=== PATIENT | male | born 1945 | race Caucasian/White ===

== ENCOUNTER 2017-04-26 10:05 | Day surgery (SDC) | payer MEDICARE ==
[~2017-04-26 10:05] MED LIST: ALPRAZolam 0.25 MG TAB PO ONE
[2017-04-26 10:59] VITALS: RESP 18; TEMP 98
[2017-04-26 11:12] LABS: Mean Platelet Volume 8.2
[2017-04-26 11:35] LABS: INR 1.1 (<1.2); Prothrombin Time 11.5 sec (9.0-12.0)
[2017-04-26 12:39] VITALS: BP 138/74; PULSE 60
--- NOTE | 2017-04-26 12:40 | XR ---
EXAMINATION TYPE: XR chest 1V DATE OF EXAM: 04/26/2017 COMPARISON: Prior chest x-ray 04/23/2017 HISTORY: Status post left thoracentesis TECHNIQUE: Single frontal view of the chest is obtained. FINDINGS: There is no evident pneumothorax. Persistent pleural effusion and associated atelectasis n oted at the left lung base. No other interval change. The patient is rotated. IMPRESSION: No evident complication status post thoracentesis on the left.
--- NOTE | 2017-04-26 14:04 | US ---
EXAMINATION TYPE: US thoracentesis DATE OF EXAM: 04/26/2017 COMPARISON: NONE HISTORY: Pleural effusion. FINDINGS: Maximal barrier technique was utilized. The skin overlying a suitable pocket of fluid was localized and the overlying skin prepped and draped. Lidocaine was used for local anesthesia. Ultras ound was used with sterile technique. A 5 Kyrgyz catheter over guide needle was advanced into the pl eural fluid collection using ultrasound guidance and the catheter advanced, needle removed. Approxim ately 1.4 liter(s) of milky fluid was removed. Catheter was withdrawn and hemostasis achieved. Ther e is no immediate complication. The patient discharged in stable condition without complication. IMPRESSION: STATUS POST ULTRASOUND GUIDED THORACENTESIS, POST PROCEDURE CHEST X-RAY PENDING. THIS UT OCEDURE WAS PERFORMED BY THE UNDERSIGNED. Specimen sent for laboratory analysis.
[2017-04-26 15:28] LABS: RBC, Body Fluid 600 /uL
[2017-04-26 15:39] LABS: Body Fluid Comment Many Mesothelial
[2017-04-26 18:58] LABS: Glucose, BF Source Pleural Fluid; LDH, Body Fluid Source Pleural Fluid; T. Protein, Body Fluid Source Pleural Fluid; Total Protein, Body Fluid 4100 mg/dL
== END 2017-04-26 12:30 | disposition home or self-care (01) ==
LOC: RADPROMAIN 10:05
PROVIDERS: ATTEND Internal Medicine
DX: J90 Pleural effusion, not elsewhere classified (principal)
CPT/HCPCS: 32555; 36415; 71010; 82945; 83615; 84157; 85049; 85610; 87070; 87075; 87102; 87205; 88108; 88305; 89050

== ENCOUNTER → 2017-06-12 | Outpatient (CLI) | payer MEDICARE ==
--- NOTE | 2017-06-12 16:21 | CT ---
"EXAMINATION TYPE: CT abdomen pelvis wo con DATE OF EXAM: 06/12/2017 COMPARISON: 12/31/2012 HISTORY: Patient has no complaints at time of study. Abnormal prior CT of the chest showing enlarged lymph nodes. CT DLP: 493.1 mGycm Examination of the solid and hollow viscera is limited given the lack of contrast. FINDINGS: LUNG BASES: Moderate to large left-sided pleural effusion with associated compressive atelectasis. LIVER/GB: The gallbladder is unremarkable. No space-occupying hepatic lesion. PANCREAS: No pancreatic mass identified. No inflammatory process seen. SPLEEN: No evidence for splenomegaly. No intrasplenic lesions seen. ADRENALS: No adrenal nodules identified. No evidence for thickening. KIDNEYS: There is ill-definition of both kidneys left greater than right. Kidneys are adjacent to mas sive retroperitoneal adenopathy. Infiltration into the kidneys is suspected however given the lack of contrast evaluation is limited. Suspect left-sided hydronephrosis. Tiny nonobstructing calculus righ t kidney. Perinephric stranding seen bilaterally. BOWEL: There may be early invasion into the transverse portion of the duodenum. Contrast however is noted within the distal small and large bowel. Lymph nodes: Massive retroperitoneal adenopathy measures an estimated 9.8 x 8.2 x 19.3 cm. Adenopathy extends into the left iliac chain. Celiac axis adenopathy measures 2.9 cm. Abdominal aorta: Atheromatous changes seen. No evidence for aneurysm. Genital organs: Prostate gland enlargement. Other: Severe multilevel degenerative disc disease. IMPRESSION: 1. MASSIVE RETROPERITONEAL ADENOPATHY ENCASING THE AORTA AND INFERIOR VENA CAVA. IN ADDITION THERE IS ILL-DEFINITION OF THE KIDNEYS LEFT GREATER THAN RIGHT AND I SUSPECT INFILTRATION INTO THE KIDNEYS. T HERE IS PERINEPHRIC STRANDING AND SUSPECTED LEFT-SIDED HYDRONEPHROSIS. LACK OF INTRAVENOUS CONTRAST L IMITS EVALUATION OF THE KIDNEYS. EARLY INVASION INTO THE TRANSVERSE DUODENUM IS ALSO DIFFICULT TO EXC LUDE. 2. MODERATE TO LARGE LEFT-SIDED PLEURAL EFFUSION LEFT BASILAR COMPRESSIVE ATELECTASIS. A Dare message has been communicated to Becca Fregoso MD via the [employer] | Critical Result sy stem on 06/12/2017 4:18 PM, Message ID [id number]."
== END | disposition home or self-care (01) ==
LOC: RADCTMAIN 13:23
PROVIDERS: ATTEND Internal Medicine
DX: R59.0 Localized enlarged lymph nodes (principal); R93.422 Abnormal radiologic findings on diagnostic imaging of left kidney; R93.421 Abnormal radiologic findings on diagnostic imaging of right kidney
CPT/HCPCS: 36415; 74176; 82565; 84520

== ENCOUNTER 2017-06-19 12:28 | Inpatient (IN) | payer MEDICARE ==
--- NOTE | 2017-06-19 13:29 | ED ---
General Adult HPI - General Source: patient, RN notes reviewed Mode of arrival: ambulatory Limitations: no limitations <Iesha Costa - Last Filed: 06/19/17 14:45> <Brandyn Arndt - Last Filed: 06/19/17 14:49> - General Chief complaint: Recheck/Abnormal Lab/Rx Stated complaint: Recheck-sent by dr Time Seen by Provider: 06/19/17 12:43 - History of Present Illness Initial comments: 72 yo male presents to the ER with cc of sent here by his doctor. Patient had an abnormal CAT scan and they referred him.. At this time the patient has no complaints.Patient denies any recent fever, chills, shortness of breath, chest pain, back pain, abdominal pain, nausea vomiting, numbness or tingling, dysuria or hematuria, constipation or diarrhea, headaches or visual changes, or any other current symptoms. (Iesha Costa) - Related Data Home Medications Medication Instructions Recorded Confirmed Albuterol Inhaler [Ventolin Hfa 1 - 2 puff INHALATION Q6HR PRN 04/24/17 06/19/17 Inhaler] Fluticasone/Salmeterol [Advair 1 inhalation PO RT-BID 04/24/17 06/19/17 500-50 Diskus] Simvastatin 40 mg PO HS 04/24/17 06/19/17 Allergies Allergy/AdvReac Type Severity Reaction Status Date / Time No Known Allergies Allergy Verified 06/19/17 14:36 Review of Systems ROS Other: All systems not noted in ROS Statement are negative. <Iesha Costa - Last Filed: 06/19/17 14:45> ROS Other: All systems not noted in ROS Statement are negative. <Brandyn Arndt - Last Filed: 06/19/17 14:49> ROS Statement: Those systems with pertinent positive or pertinent negative responses have been documented in the HPI. Past Medical History Past Medical History: Asthma Additional Past Medical History / Comment(s): umbilical hernia, history of frequent lung infections History of Any Multi-Drug Resistant Organisms: None Reported Past Surgical History: Hernia Repair Past Anesthesia/Blood Transfusion Reactions: No Reported Reaction Past Psychological History: Anxiety Smoking Status: Never smoker Past Alcohol Use History: Rare Past Drug Use History: None Reported - Past Family History Father Family Medical History: No Reported History <Iesha Costa - Last Filed: 06/19/17 14:45> General Exam Limitations: no limitations General appearance: alert, in no apparent distress Neck exam: Present: normal inspection. Absent: tenderness, meningismus, lymphadenopathy Respiratory exam: Present: normal lung sounds bilaterally. Absent: respiratory distress, wheezes, rales, rhonchi, stridor Cardiovascular Exam: Present: regular rate, normal rhythm, normal heart sounds. Absent: systolic murmur, diastolic murmur, rubs, gallop, clicks GI/Abdominal exam: Present: soft, normal bowel sounds. Absent: distended, tenderness, guarding, rebound, rigid Extremities exam: Present: normal inspection, full ROM, normal capillary refill. Absent: tenderness, pedal edema, joint swelling, calf tenderness Neurological exam: Present: alert, oriented X3 Psychiatric exam: Present: normal affect, normal mood Skin exam: Present: warm, dry, intact, normal color. Absent: rash <Iesha Costa - Last Filed: 06/19/17 14:45> Vital Signs 06/19/17 12:35 Temperature 97.1 F L Pulse Rate 57 L Respiratory 16 Rate Blood Pressure 163/74 O2 Sat by Pulse 99 Oximetry Medical Decision Making - Lab Data Result diagrams: 06/19/17 13:16 06/19/17 13:16 - Radiology Data Radiology results: report reviewed, image reviewed <Iesha Costa - Last Filed: 06/19/17 14:45> - Lab Data Result diagrams: 06/19/17 13:16 06/19/17 13:16 <Brandyn Arndt - Last Filed: 06/19/17 14:49> - Medical Decision Making 72-year-old male presents to the emergency department with a chief complaint of abnormal CAT scan that was out patiently. At this time he has no complaints. CAT scan was reviewed that does show extensive adenopathy in the retroperitoneal area. At this time we did review the patient's blood work appear to be stable at this time. There is concern for UTI we will start patient on Cipro. We did contact Dr. Herring like the patient admitted. (Iesha Costa) Patient reevaluated by myself, Dr. Arndt. Patient resting comfortably in bed. Case was discussed with Dr. Fregoso who is concerned regarding patient. He states he has had difficulty obtaining follow-up appointments. He did talk to interventional radiologist was unable to perform biopsy. He states patient does need a surgical biopsy. He does recommend admission with consults for Dr. Ramos, urology, and oncology. Case was also discussed with Dr. Bone, who will admit for Dr. Tao. (Brandyn Arndt) - Lab Data Lab Results 06/19/17 06/19/17 06/19/17 Range/Units 13:16 13:16 13:16 WBC 12.9 H (3.8-10.6) k/uL RBC 4.72 (4.30-5.90) m/uL Hgb 12.9 L (13.0-17.5) gm/dL Hct 42.0 (39.0-53.0) % MCV 89.0 (80.0-100.0) fL MCH 27.3 (25.0-35.0) pg MCHC 30.7 L (31.0-37.0) g/dL RDW 15.3 (11.5-15.5) % Plt Count 391 (150-450) k/uL Neutrophils % 66 % Lymphocytes % 9 % Monocytes % 8 % Eosinophils % 16 % Basophils % 1 % Neutrophils # 8.4 H (1.3-7.7) k/uL Lymphocytes # 1.1 (1.0-4.8) k/uL Monocytes # 1.0 (0-1.0) k/uL Eosinophils # 2.1 H (0-0.7) k/uL Basophils # 0.1 (0-0.2) k/uL PT (9.0-12.0) sec INR (<1.2) APTT (22.0-30.0) sec Sodium 142 (137-145) mmol/L Potassium 4.5 (3.5-5.1) mmol/L Chloride 106 (98-107) mmol/L Carbon Dioxide 25 (22-30) mmol/L Anion Gap 11 mmol/L BUN 26 H (9-20) mg/dL Creatinine 1.40 H (0.66-1.25) mg/dL Est GFR (MDRD) Af Amer >60 (>60 ml/min/1.73 sqM) Est GFR (MDRD) Non-Af 50 (>60 ml/min/1.73 sqM) Glucose 83 (74-99) mg/dL Calcium 10.0 (8.4-10.2) mg/dL Phosphorus 3.7 (2.5-4.5) mg/dL Magnesium 1.6 (1.6-2.3) mg/dL Total Bilirubin 0.8 (0.2-1.3) mg/dL AST 16 L (17-59) U/L ALT 24 (21-72) U/L Alkaline Phosphatase 107 (38-126) U/L Total Protein 6.2 L (6.3-8.2) g/dL Albumin 3.5 (3.5-5.0) g/dL Urine Color Yellow Urine Appearance Clear (Clear) Urine pH 5.5 (5.0-8.0) Ur Specific [place] 1.019 (1.001-1.035) Urine Protein 1+ H (Negative) Urine Glucose (UA) Negative (Negative) Urine Ketones Negative (Negative) Urine Blood Negative (Negative) Urine Nitrite Negative (Negative) Urine Bilirubin Negative (Negative) Urine Urobilinogen 2.0 (<2.0) mg/dL Ur Leukocyte Esterase Moderate H (Negative) Urine RBC 3 (0-5) /hpf Urine WBC 23 H (0-5) /hpf Urine Bacteria Rare H (None) /hpf Urine Mucus Rare H (None) /hpf 06/19/17 Range/Units 13:16 WBC (3.8-10.6) k/uL RBC (4.30-5.90) m/uL Hgb (13.0-17.5) gm/dL Hct (39.0-53.0) % MCV (80.0-100.0) fL MCH (25.0-35.0) pg MCHC (31.0-37.0) g/dL RDW (11.5-15.5) % Plt Count (150-450) k/uL Neutrophils % % Lymphocytes % % Monocytes % % Eosinophils % % Basophils % % Neutrophils # (1.3-7.7) k/uL Lymphocytes # (1.0-4.8) k/uL Monocytes # (0-1.0) k/uL Eosinophils # (0-0.7) k/uL Basophils # (0-0.2) k/uL PT 12.4 H (9.0-12.0) sec INR 1.3 H (<1.2) APTT 25.9 (22.0-30.0) sec Sodium (137-145) mmol/L Potassium (3.5-5.1) mmol/L Chloride (98-107) mmol/L Carbon Dioxide (22-30) mmol/L Anion Gap mmol/L BUN (9-20) mg/dL Creatinine (0.66-1.25) mg/dL Est GFR (MDRD) Af Amer (>60 ml/min/1.73 sqM) Est GFR (MDRD) Non-Af (>60 ml/min/1.73 sqM) Glucose (74-99) mg/dL Calcium (8.4-10.2) mg/dL Phosphorus (2.5-4.5) mg/dL Magnesium (1.6-2.3) mg/dL Total Bilirubin (0.2-1.3) mg/dL AST (17-59) U/L ALT (21-72) U/L Alkaline Phosphatase (38-126) U/L Total Protein (6.3-8.2) g/dL Albumin (3.5-5.0) g/dL Urine Color Urine Appearance (Clear) Urine pH (5.0-8.0) Ur Specific [place] (1.001-1.035) Urine Protein (Negative) Urine Glucose (UA) (Negative) Urine Ketones (Negative) Urine Blood (Negative) Urine Nitrite (Negative) Urine Bilirubin (Negative) Urine Urobilinogen (<2.0) mg/dL Ur Leukocyte Esterase (Negative) Urine RBC (0-5) /hpf Urine WBC (0-5) /hpf Urine Bacteria (None) /hpf Urine Mucus (None) /hpf Disposition <Iesha Costa - Last Filed: 06/19/17 14:45> <Brandyn Arndt - Last Filed: 06/19/17 14:49> Clinical Impression: Retroperitoneal lymphadenopathy, UTI (urinary tract infection) Disposition: ADMITTED IP TO THIS [facility] Condition: Stable Referrals: Srinivasa Tao MD [Primary Care Provider] - 1-2 days
[2017-06-19 13:37] LABS: ALT 24 U/L (21-72); AST 16 U/L (17-59); Alkaline Phosphatase 107 U/L (38-126); Anion Gap 11 mmol/L; Blood Urea Nitrogen 26 mg/dL (9-20); Carbon Dioxide 25 mmol/L (22-30); Chloride 106 mmol/L (98-107); Glucose 83 mg/dL (74-99); Magnesium 1.6 mg/dL (1.6-2.3); Non-African American GFR(MDRD) 50 (>60 ml/min/1.73 sqM); Phosphorus 3.7 mg/dL (2.5-4.5); Potassium 4.5 mmol/L (3.5-5.1); Sodium 142 mmol/L (137-145); Total Bilirubin 0.8 mg/dL (0.2-1.3); Total Protein 6.2 g/dL (6.3-8.2)
[2017-06-19 13:38] LABS: Appearance,Urine Clear (Clear); Bacteria,Urine Rare /hpf; Bilirubin,Urine Negative (Negative); Glucose,Urine (UA) Negative (Negative); Ketones,Urine Negative (Negative); Leukocyte Esterase,Urine Moderate (Negative); Mucus,Urine Rare /hpf; Nitrite,Urine Negative (Negative); PH, Urine 5.5 (5.0-8.0); Particle Count 2724; Protein,Urine 1+ (Negative); RBC,Urine 3 /hpf (0-5); Specific Gravity,Urine 1.019 (1.001-1.035); UA Billing (MACRO vs. MICRO) MICRO; WBC,Urine 23 /hpf (0-5)
[2017-06-19 13:41] LABS: Basophils # (A) 0.1 k/uL (0-0.2); Basophils % (A) 1 %; CH 28.3; Eosinophils # (A) 2.1 k/uL (0-0.7); Eosinophils % (A) 16 %; HGB 12.9 gm/dL (13.0-17.5); Luc # (Auto) 0.13; Luc % (Auto) 1; Lymphocytes # (A) 1.1 k/uL (1.0-4.8); Lymphocytes % (A) 9 %; MCH 27.3 pg (25.0-35.0); MCHC 30.7 g/dL (31.0-37.0); Mean Platelet Volume 8.8; Monocytes % (A) 8 %; Neutrophils # (A) 8.4 k/uL (1.3-7.7); Neutrophils % (A) 66 %; RBC 4.72 m/uL (4.30-5.90); RDW 15.3 % (11.5-15.5); WBC 12.9 k/uL (3.8-10.6); WBC (Perox) 13.17
[2017-06-19 13:43] LABS: INR 1.3 (<1.2); Partial Thromboplastin Time 25.9 sec (22.0-30.0); Prothrombin Time 12.4 sec (9.0-12.0)
[2017-06-19] MEDS ORDERED: ONDANSETRON 4 MG/2 ML VIAL IVP PRN (14:45)
[2017-06-19] MEDS ORDERED: NALOXONE 0.4 MG/ML 1 ML VIAL IV PRN (14:45)
[2017-06-19] MEDS ORDERED: ALBUTEROL NEBULIZED 2.5 MG/3 ML INHALATION PRN (14:48)
[2017-06-19 16:54] VITALS: BMI 23.6
[2017-06-19] MEDS ORDERED: NAPROXEN 250 MG TAB PO PRN (17:55)
--- NOTE | 2017-06-19 18:29 | P.HPIM ---
History of Present Illness H&P Date: 06/19/17 Chief Complaint: Abnormal CT imaging This is a 72-year-old very pleasant male patient of Dr. Tao with past medical history of asthma, GERD, hyperlipidemia, BPH who presents after being referred by Dr. Lowe for abnormal CT imaging findings. Patient was seen by Dr. Tao one month ago for recurrent lung infections and was sent for a chest x-ray on 04/23 was suggested moderate size left pleural effusion with a distended atelectasis. Patient underwent thoracentesis which could remove 1250 mL fluid which was cloudy in appearance, cytology was negative. CT chest was ordered to follow-up on pleural effusion which suggested moderate size left pleural effusion along with consolidation/atelectasis in the lingula along with retroperitoneal lymphadenopathy concerning for neoplasm. On 06/12/[address] abdomen and pelvis which suggested massive retroperitoneal T t encasing the aorta and inferior manner. Will ill-definition of the kidneys left greater than the right with possible perinephric stranding and suspected left-sided hydronephrosis. Moderate to large sized left-sided pleural effusion was also seen. Patient on evaluation endorses 25 pounds weight loss in the past 6 months with loss of appetite. For concern for neoplasm, interventional radiology was consulted to evaluate lymph node but could not be removed according to the radiology. Surgical removal of lymph node recommended. Due to left-sided hydronephrosis urology was consulted. Dr. oleary consulted for left-sided pleural effusion. Patient kept nothing by mouth for procedure. Patient denies any symptoms of cough or shortness of breath, denies any fever or chills, denies abdominal pain nausea or vomiting. He does endorses hematuria one week ago but denies any recent discomfort or decreased urination. Review of Systems Constitutional: Denies chills, Denies fever, endorses lethargy, endorses poor appetite,endorses weight loss Eyes: denies decreased vision, denies diplopia, denies discharge, denies pain Ears: deny: decreased hearing Ears, nose, mouth and throat: Denies dental pain, Denies headache, Denies nasal discharge, Denies nose pain Cardiovascular: Denies chest pain, Denies decreased exercise tolerance, Denies edema, Denies high blood pressure, Denies irregular heart beat, Denies palpitations, Denies paroxysmal nocturnal dyspnea, Denies rapid heart beat, Denies shortness of breath Respiratory: Endorses congestion, endorses cough, Denies cough with sputum, Denies dyspnea, Denies home oxygen, Denies wheezing Gastrointestinal: Denies abdominal pain, Denies change in bowel habits, Denies coffee ground emesis, Denies early satiety, Denies excessive gas, Denies heartburn, Denies hematemesis, Denies hematochezia, Denies loss of appetite, Denies nausea, Denies vomiting Genitourinary: Denies dysuria, Denies flank pain, Denies kidney stones, Denies menorrhagia, Denies urgency, Denies urinary frequency Musculoskeletal: Denies gait dysfunction, Denies limitation of motion, Denies morning stiffness, Denies muscle cramps Integumentary: Denies rash, Denies wounds, Denies brittle nails, Denies change in hair/nails, Denies darkening of skin Neurological: Denies balance difficulties, Denies change in speech, Denies double vision, Denies gait dysfunction, Denies loss of vision, Denies motor disturbance, Denies numbness, Denies paralysis, Denies paresthesias, Denies seizures Psychiatric: Denies anxiety, Denies depression Endocrine: Denies excessive sweating, Denies excessive thirst, Denies high blood sugars, Denies palpitations Hematologic/Lymphatic: Denies easy bruising, Denies lymphadenopathy Past Medical History Past Medical History: Asthma, GERD/Reflux, Hyperlipidemia, Prostate Disorder Additional Past Medical History / Comment(s): umbilical hernia, history of frequent lung infections History of Any Multi-Drug Resistant Organisms: None Reported Past Surgical History: Hernia Repair Past Anesthesia/Blood Transfusion Reactions: No Reported Reaction Smoking Status: Never smoker - Past Family History Father Family Medical History: Coronary Artery Disease (CAD), Myocardial Infarction ([place] ) Additional Family Medical History / Comment(s): "HARDENING OF THE ARTERIES", AT AGE 60 Mother Additional Family Medical History / Comment(s): HX DIVERTICULITIS -WENT IN FOR SX - FROM POST OP COMPLICATIONS/SEPSIS. Brother(s) Family Medical History: Cancer Medications and Allergies Home Medications Medication Instructions Recorded Confirmed Type Albuterol Inhaler [Ventolin Hfa 1 - 2 puff INHALATION RT-Q6H PRN 04/24/17 History Inhaler] Fluticasone/Salmeterol [Advair 1 inhalation PO RT-BID 04/24/17 06/19/17 History 500-50 Diskus] Simvastatin 40 mg PO HS 04/24/17 06/19/17 History Ferrous Sulfate [Feosol] 325 mg PO DAILY 06/19/17 06/19/17 History Naproxen [Naprosyn] 500 mg PO Q12HR PRN 06/19/17 06/19/17 History Allergies Allergy/AdvReac Type Severity Reaction Status Date / Time No Known Allergies Allergy Verified 06/19/17 14:36 Physical Exam Vitals: Vital Signs Temp Pulse Pulse Pulse Resp BP BP 06/19/17 16:57 56 L 16 06/19/17 16:39 97.6 F 54 L 12 161/69 06/19/17 15:18 98.1 F 56 L 16 153/70 06/19/17 14:58 97.5 F L 65 18 168/72 06/19/17 12:35 97.1 F L 57 L 16 163/74 Pulse Ox 06/19/17 16:57 06/19/17 16:39 98 06/19/17 15:18 96 06/19/17 14:58 96 06/19/17 12:35 99 Intake and Output 06/19/17 06/19/17 06/19/17 06:59 14:59 22:59 Other: Voiding Method Toilet Weight 72.575 kg 72.575 kg Patient Weight 06/20/17 06:59 Weight 72.575 kg - Constitutional General appearance: average body habitus, no acute distress - EENT Eyes: EOMI, PERRLA ENT: normal oropharynx - Neck Carotids: bilateral: upstroke normal - Respiratory Respiratory: left: dullness, rhonchi, bilateral: diminished, negative: wheezing - Cardiovascular Rhythm: regular Heart sounds: normal: S1, S2 Abnormal Heart Sounds: no systolic murmur, no diastolic murmur ankle Peripheral Edema: bilateral: None - Gastrointestinal General gastrointestinal: no distended, soft, no tenderness - Integumentary Integumentary: no cyanotic, no rash - Neurologic Neurologic: CNII-XII intact - Musculoskeletal Musculoskeletal: gait normal, strength equal bilaterally - Psychiatric Psychiatric: A&O x's 3, appropriate affect Results CBC & Chem 7: 06/19/17 13:16 06/19/17 13:16 Labs: Abnormal Lab Results - Last 24 Hours (Table) 06/19/17 06/19/17 06/19/17 Range/Units 13:16 13:16 13:16 WBC 12.9 H (3.8-10.6) k/uL Hgb 12.9 L (13.0-17.5) gm/dL MCHC 30.7 L (31.0-37.0) g/dL Neutrophils # 8.4 H (1.3-7.7) k/uL Eosinophils # 2.1 H (0-0.7) k/uL PT (9.0-12.0) sec INR (<1.2) BUN 26 H (9-20) mg/dL Creatinine 1.40 H (0.66-1.25) mg/dL AST 16 L (17-59) U/L Total Protein 6.2 L (6.3-8.2) g/dL Urine Protein 1+ H (Negative) Ur Leukocyte Esterase Moderate H (Negative) Urine WBC 23 H (0-5) /hpf Urine Bacteria Rare H (None) /hpf Urine Mucus Rare H (None) /hpf 06/19/17 Range/Units 13:16 WBC (3.8-10.6) k/uL Hgb (13.0-17.5) gm/dL MCHC (31.0-37.0) g/dL Neutrophils # (1.3-7.7) k/uL Eosinophils # (0-0.7) k/uL PT 12.4 H (9.0-12.0) sec INR 1.3 H (<1.2) BUN (9-20) mg/dL Creatinine (0.66-1.25) mg/dL AST (17-59) U/L Total Protein (6.3-8.2) g/dL Urine Protein (Negative) Ur Leukocyte Esterase (Negative) Urine WBC (0-5) /hpf Urine Bacteria (None) /hpf Urine Mucus (None) /hpf Thrombosis Risk Factor Assmnt - DVT/VTE Prophylaxis DVT/VTE Prophylaxis: Pharmacologic Prophylaxis ordered Assessment and Plan Plan: 1 left-sided pleural effusion with cough and congestion- previous fluid analysis from 04/26 has normal glucose, high protein, total WBC 1400, mostly lymphocytic, many mesothelial cells was seen, pH of pleural fluid analysis was not done , unlikely to be exudative , though lymphoma could not be excluded due to increase in lymphocytes moderate right-sided pleural effusion seen on the repeat CT chest. Patient does have significant congestion and rhonchi on the left side with diminished air bases, we will repeat chest x-ray to evaluate for worsening of pleural effusion and any consolidation. IR will be consulted for pleural fluid removal if indicated, patient currently asymptomatic . Dr. Byrd consulted 2 urinary tract infection - continue Rocephin 3 acute kidney injury - Baseline creatinine unknown , repeat BMP tomorrow . Based on the labs done last week patient's creatinine has improved. 4 Retroperitoneal lymphadenopathy -CT abdomen positive for massive retroperitoneal lymphadenopathy 9.8 into 8.2 into 19.3 cm concerning for malignancy along with celiac axis adenopathy. Surgery consulted for possible surgical removal of lymph nodes patient kept nothing by mouth over midnight 5 left hydronephrosis patient able to urinate without any abnormality. Urology consulted for recommendation, 6 DVT prophylaxis with SCDs 7 GI prophylaxis Pepcid 20 mg po twice a day 8 asthma - continue Symbicort inhaler and albuterol #9 hyperlipidemia continue simvastatin CODE STATUS full code Patient would need 2 inpatient nights
--- NOTE | 2017-06-19 19:26 | XR ---
EXAMINATION TYPE: XR chest 2V DATE OF EXAM: 06/19/2017 COMPARISON: Most recent chest x-ray May 09, 2017 HISTORY: Pleural effusion progress study. TECHNIQUE: Frontal and lateral views of the chest are obtained. FINDINGS: There is now moderate left-sided pleural effusion increased in prominence from most recent x-ray. There is associated left basilar compressive atelectasis. Right lung remains clear. The cardi ac silhouette size is stable and upper limits of normal. The osseous structures are intact. IMPRESSION: Moderate-sized left pleural effusion increased in size from most recent x-ray.
--- NOTE | 2017-06-19 20:27 | P.GSCN ---
History of Present Illness Consult date: 06/19/17 Reason for Consult: Retroperitoneal lymphadenopathy History of present illness: Patient was admitted to the hospital for further evaluation of retroperitoneal lymphadenopathy. He has had both a CAT scan of the abdomen and pelvis and the chest. Apparently there was an aborted attempt at percutaneous biopsy of the adenopathy. Consideration for surgical biopsy was made. We were consulted for this reason. Patient denies abdominal pain. He has lost 25 pounds in the last 6 months. His appetite is significantly diminished. No nausea or vomiting. It appears that oncology has not evaluated this patient thus far. Review of Systems The patient denies any acute changes in vision or hearing, no dysphagia or odynophagia, no chest pain, no dysuria or hematuria, no headache, no runny nose , no rectal bleeding or melena Past Medical History Past Medical History: Asthma, GERD/Reflux, Hyperlipidemia, Prostate Disorder Additional Past Medical History / Comment(s): umbilical hernia, history of frequent lung infections History of Any Multi-Drug Resistant Organisms: None Reported Past Surgical History: Hernia Repair Past Anesthesia/Blood Transfusion Reactions: No Reported Reaction Smoking Status: Never smoker - Past Family History Father Family Medical History: Coronary Artery Disease (CAD), Myocardial Infarction ([place] ) Additional Family Medical History / Comment(s): "HARDENING OF THE ARTERIES", AT AGE 60 Mother Additional Family Medical History / Comment(s): HX DIVERTICULITIS -WENT IN FOR SX - FROM POST OP COMPLICATIONS/SEPSIS. Brother(s) Family Medical History: Cancer Medications and Allergies Home Medications Medication Instructions Recorded Confirmed Type Albuterol Inhaler [Ventolin Hfa 1 - 2 puff INHALATION RT-Q6H PRN 04/24/17 History Inhaler] Fluticasone/Salmeterol [Advair 1 inhalation PO RT-BID 04/24/17 06/19/17 History 500-50 Diskus] Simvastatin 40 mg PO HS 04/24/17 06/19/17 History Ferrous Sulfate [Feosol] 325 mg PO DAILY 06/19/17 06/19/17 History Naproxen [Naprosyn] 500 mg PO Q12HR PRN 06/19/17 06/19/17 History Allergies Allergy/AdvReac Type Severity Reaction Status Date / Time No Known Allergies Allergy Verified 06/19/17 14:36 Surgical - Exam Vital Signs Temp Pulse Resp BP Pulse Ox 97.1 F L 57 L 16 163/74 99 06/19/17 12:35 06/19/17 12:35 06/19/17 12:35 06/19/17 12:35 06/19/17 12:35 Physical exam: General: Well-developed, well-nourished HEENT: Normocephalic, sclerae nonicteric Abdomen: Nontender, nondistended Extremities: No edema, no axillary or inguinal adenopathy palpated Neuro: Alert and oriented Results - Labs 06/19/17 13:16 06/19/17 13:16 Abnormal Lab Results - Last 24 Hours (Table) 06/19/17 06/19/17 06/19/17 Range/Units 13:16 13:16 13:16 WBC 12.9 H (3.8-10.6) k/uL Hgb 12.9 L (13.0-17.5) gm/dL MCHC 30.7 L (31.0-37.0) g/dL Neutrophils # 8.4 H (1.3-7.7) k/uL Eosinophils # 2.1 H (0-0.7) k/uL PT (9.0-12.0) sec INR (<1.2) BUN 26 H (9-20) mg/dL Creatinine 1.40 H (0.66-1.25) mg/dL AST 16 L (17-59) U/L Total Protein 6.2 L (6.3-8.2) g/dL Urine Protein 1+ H (Negative) Ur Leukocyte Esterase Moderate H (Negative) Urine WBC 23 H (0-5) /hpf Urine Bacteria Rare H (None) /hpf Urine Mucus Rare H (None) /hpf 06/19/17 Range/Units 13:16 WBC (3.8-10.6) k/uL Hgb (13.0-17.5) gm/dL MCHC (31.0-37.0) g/dL Neutrophils # (1.3-7.7) k/uL Eosinophils # (0-0.7) k/uL PT 12.4 H (9.0-12.0) sec INR 1.3 H (<1.2) BUN (9-20) mg/dL Creatinine (0.66-1.25) mg/dL AST (17-59) U/L Total Protein (6.3-8.2) g/dL Urine Protein (Negative) Ur Leukocyte Esterase (Negative) Urine WBC (0-5) /hpf Urine Bacteria (None) /hpf Urine Mucus (None) /hpf Microbiology - Last 24 Hours (Table) 06/19/17 13:16 Urine Culture - Preliminary Urine,Clean Catch Diabetes panel 06/19/17 Range/Units 13:16 Sodium 142 (137-145) mmol/L Potassium 4.5 (3.5-5.1) mmol/L Chloride 106 (98-107) mmol/L Carbon Dioxide 25 (22-30) mmol/L BUN 26 H (9-20) mg/dL Creatinine 1.40 H (0.66-1.25) mg/dL Glucose 83 (74-99) mg/dL Calcium 10.0 (8.4-10.2) mg/dL AST 16 L (17-59) U/L ALT 24 (21-72) U/L Alkaline Phosphatase 107 (38-126) U/L Total Protein 6.2 L (6.3-8.2) g/dL Albumin 3.5 (3.5-5.0) g/dL Calcium panel 06/19/17 Range/Units 13:16 Calcium 10.0 (8.4-10.2) mg/dL Phosphorus 3.7 (2.5-4.5) mg/dL Albumin 3.5 (3.5-5.0) g/dL Pituitary panel 06/19/17 Range/Units 13:16 Sodium 142 (137-145) mmol/L Potassium 4.5 (3.5-5.1) mmol/L Chloride 106 (98-107) mmol/L Carbon Dioxide 25 (22-30) mmol/L BUN 26 H (9-20) mg/dL Creatinine 1.40 H (0.66-1.25) mg/dL Glucose 83 (74-99) mg/dL Calcium 10.0 (8.4-10.2) mg/dL Adrenal panel 06/19/17 Range/Units 13:16 Sodium 142 (137-145) mmol/L Potassium 4.5 (3.5-5.1) mmol/L Chloride 106 (98-107) mmol/L Carbon Dioxide 25 (22-30) mmol/L BUN 26 H (9-20) mg/dL Creatinine 1.40 H (0.66-1.25) mg/dL Glucose 83 (74-99) mg/dL Calcium 10.0 (8.4-10.2) mg/dL Total Bilirubin 0.8 (0.2-1.3) mg/dL AST 16 L (17-59) U/L ALT 24 (21-72) U/L Alkaline Phosphatase 107 (38-126) U/L Total Protein 6.2 L (6.3-8.2) g/dL Albumin 3.5 (3.5-5.0) g/dL Assessment and Plan (1) Retroperitoneal lymphadenopathy Narrative/Plan: Surgical biopsy either open or laparoscopic would be quite challenging in this case. Would defer to vascular surgery if that was our only option. In cases such as this we have had success with tertiary care referral for either endoscopic ultrasound guided biopsy or percutaneous radiology guided biopsy. This was discussed with the family today. Current Visit: Yes Status: Acute Code(s): R59.0 - LOCALIZED ENLARGED LYMPH NODES SNOMED Code(s): 672477197
[2017-06-19] MEDS: SYMBICORT 160-4.5 MCG INHALER INHALATION SCH (20:42)
[2017-06-19] MEDS ORDERED: ATORVASTATIN 20 MG TAB PO SCH (21:00)
[2017-06-19] MEDS: FAMOTIDINE 20 MG TAB PO SCH (21:02)
[2017-06-19] MEDS: cefTRIAXone IN SWFI 1,000 MG/10 ML SYRINGE IVP SCH (21:03)
[2017-06-20 07:30] LABS: Basophils # (A) 0.1 k/uL (0-0.2); Basophils % (A) 1 %; CH 27.7; CHCM 31.7; Eosinophils # (A) 1.7 k/uL (0-0.7); Eosinophils % (A) 16 %; HCT 34.5 % (39.0-53.0); HDW 2.53; HGB 11.5 gm/dL (13.0-17.5); Luc # (Auto) 0.11; Luc % (Auto) 1; Lymphocytes # (A) 0.9 k/uL (1.0-4.8); Lymphocytes % (A) 9 %; MCH 29.3 pg (25.0-35.0); MCHC 33.3 g/dL (31.0-37.0); MCV 87.9 fL (80.0-100.0); Mean Platelet Volume 8.5; Monocytes % (A) 10 %; Neutrophils # (A) 6.7 k/uL (1.3-7.7); Neutrophils % (A) 64 %; RBC 3.93 m/uL (4.30-5.90); RDW 14.8 % (11.5-15.5); WBC 10.4 k/uL (3.8-10.6); WBC (Perox) 11.18
[2017-06-20] MEDS: FAMOTIDINE 20 MG TAB PO SCH (07:47)
[2017-06-20] MEDS: cefTRIAXone IN SWFI 1,000 MG/10 ML SYRINGE IVP SCH (07:48)
[2017-06-20 07:52] LABS: Calcium 9.8 mg/dL (8.4-10.2); Potassium 4.7 mmol/L (3.5-5.1); Total Bilirubin 0.5 mg/dL (0.2-1.3); Total Protein 5.2 g/dL (6.3-8.2)
[2017-06-20] MEDS: SYMBICORT 160-4.5 MCG INHALER INHALATION SCH (07:58)
[2017-06-20] MEDS ORDERED: FERROUS SULFATE 325 MG TAB PO SCH (09:00)
--- NOTE | 2017-06-20 10:34 | P.PN ---
Subjective Progress Note Date: 06/20/17 Principal diagnosis: Retroperitoneal adenopathy Patient without new complaints. He was seen by oncology earlier today. He was told that arrangements would be made for him to have a percutaneous biopsy at [facility] post discharge. Objective - Vital Signs Vital signs: Vital Signs Temp 97.9 F 06/20/17 07:00 Pulse 96 06/20/17 07:00 Resp 20 06/20/17 07:00 BP 161/72 06/20/17 07:00 Pulse Ox 96 06/19/17 22:02 Intake & Output 06/19/17 06/20/17 06/20/17 18:59 06:59 18:59 Intake Total 400 Balance 400 Weight 72.575 kg Intake: Oral 400 Other: Voiding Method Toilet Toilet # Voids 2 - Exam Abdomen: Soft, nontender, nondistended - Labs CBC & Chem 7: 06/20/17 06:47 06/20/17 06:47 Labs: Abnormal Lab Results - Last 24 Hours (Table) 06/19/17 06/19/17 06/19/17 Range/Units 13:16 13:16 13:16 WBC 12.9 H (3.8-10.6) k/uL RBC (4.30-5.90) m/uL Hgb 12.9 L (13.0-17.5) gm/dL Hct (39.0-53.0) % MCHC 30.7 L (31.0-37.0) g/dL Neutrophils # 8.4 H (1.3-7.7) k/uL Lymphocytes # (1.0-4.8) k/uL Eosinophils # 2.1 H (0-0.7) k/uL PT (9.0-12.0) sec INR (<1.2) BUN 26 H (9-20) mg/dL Creatinine 1.40 H (0.66-1.25) mg/dL AST 16 L (17-59) U/L Total Protein 6.2 L (6.3-8.2) g/dL Albumin (3.5-5.0) g/dL Urine Protein 1+ H (Negative) Ur Leukocyte Esterase Moderate H (Negative) Urine WBC 23 H (0-5) /hpf Urine Bacteria Rare H (None) /hpf Urine Mucus Rare H (None) /hpf Ur Random Sodium (30-90) mmol/L 06/19/17 06/19/17 06/20/17 Range/Units 13:16 22:05 06:47 WBC (3.8-10.6) k/uL RBC 3.93 L (4.30-5.90) m/uL Hgb 11.5 L (13.0-17.5) gm/dL Hct 34.5 L (39.0-53.0) % MCHC (31.0-37.0) g/dL Neutrophils # (1.3-7.7) k/uL Lymphocytes # 0.9 L (1.0-4.8) k/uL Eosinophils # 1.7 H (0-0.7) k/uL PT 12.4 H (9.0-12.0) sec INR 1.3 H (<1.2) BUN (9-20) mg/dL Creatinine (0.66-1.25) mg/dL AST (17-59) U/L Total Protein (6.3-8.2) g/dL Albumin (3.5-5.0) g/dL Urine Protein (Negative) Ur Leukocyte Esterase (Negative) Urine WBC (0-5) /hpf Urine Bacteria (None) /hpf Urine Mucus (None) /hpf Ur Random Sodium 166 H (30-90) mmol/L 06/20/17 Range/Units 06:47 WBC (3.8-10.6) k/uL RBC (4.30-5.90) m/uL Hgb (13.0-17.5) gm/dL Hct (39.0-53.0) % MCHC (31.0-37.0) g/dL Neutrophils # (1.3-7.7) k/uL Lymphocytes # (1.0-4.8) k/uL Eosinophils # (0-0.7) k/uL PT (9.0-12.0) sec INR (<1.2) BUN 28 H (9-20) mg/dL Creatinine 1.60 H (0.66-1.25) mg/dL AST 16 L (17-59) U/L Total Protein 5.2 L (6.3-8.2) g/dL Albumin 2.8 L (3.5-5.0) g/dL Urine Protein (Negative) Ur Leukocyte Esterase (Negative) Urine WBC (0-5) /hpf Urine Bacteria (None) /hpf Urine Mucus (None) /hpf Ur Random Sodium (30-90) mmol/L Microbiology - Last 24 Hours (Table) 06/19/17 13:16 Urine Culture - Preliminary Urine,Clean Catch Assessment and Plan (1) Retroperitoneal lymphadenopathy Narrative/Plan: Continue diet as tolerated. Stable for discharge from my standpoint. Outpatient percutaneous biopsy to be arranged by oncology. Current Visit: Yes Status: Acute Code(s): R59.0 - LOCALIZED ENLARGED LYMPH NODES SNOMED Code(s): 384653890
--- NOTE | 2017-06-20 12:11 | P.CNPUL ---
History of Present Illness Consult date: 06/20/17 Requesting physician: Donell Bone Reason for consult: abnormal CXR/CT Chief complaint: Shortness of breath History of present illness: This is a very pleasant 72-year-old gentleman who follows with Dr. Snyder as his primary care physician. He has a history of hyperlipidemia gastroesophageal reflux disease chronic bronchial asthma and benign prosthetic hypertrophy. He had developed a left-sided pleural effusion and was referred to Dr. Fregoso for the same. He had undergone a left-sided thoracentesis back in April 2017. The fluid of which was more exudative. No evidence of malignancy. A follow-up CT chest was ordered and there was significant retroperitoneal lymphadenopathy concerning for neoplasm. A computed tomography scan dedicated computed tomography scan of the abdomen was performed and revealed evidence of a massive retroperitoneal adenopathy encasing the aorta and inferior vena cava. He is also ill definition of the left kidney with suspected infiltrate. There is nephric stranding and suspected left-sided hydronephrosis. There is also recurrent moderate to large left pleural effusion. Interventional radiology was consulted for possible fine-needle aspirate of the retroperitoneal adenopathy. They had concerns regarding the location and felt it was unsafe procedure. The patient was subsequently admitted for surgical consultation and possible access to the retro-arterial adenopathy. Surgical services following this was not possible based on the fact that encasing the aorta and inferior vena cava. The thought was possible vascular surgery may be able to perform it. They're recommending transfer to a tertiary care center. The patient was seen and evaluated today by Dr. Brooks who is recommending the patient have a ultrasound-guided repeat thoracentesis and have this fluid sent for flow cytometry. Review of Systems 14 point review of system was conducted. All negative other than as mentioned in the HPI. Past Medical History Past Medical History: Asthma, GERD/Reflux, Hyperlipidemia, Prostate Disorder Additional Past Medical History / Comment(s): umbilical hernia, history of frequent lung infections History of Any Multi-Drug Resistant Organisms: None Reported Past Surgical History: Hernia Repair Past Anesthesia/Blood Transfusion Reactions: No Reported Reaction Smoking Status: Never smoker - Past Family History Father Family Medical History: Coronary Artery Disease (CAD), Myocardial Infarction ([place] ) Additional Family Medical History / Comment(s): "HARDENING OF THE ARTERIES", AT AGE 60 Mother Additional Family Medical History / Comment(s): HX DIVERTICULITIS -WENT IN FOR SX - FROM POST OP COMPLICATIONS/SEPSIS. Brother(s) Family Medical History: Cancer Medications and Allergies Home Medications Medication Instructions Recorded Confirmed Type Albuterol Inhaler [Ventolin Hfa 1 - 2 puff INHALATION RT-Q6H PRN 04/24/17 History Inhaler] Fluticasone/Salmeterol [Advair 1 inhalation PO RT-BID 04/24/17 06/19/17 History 500-50 Diskus] Simvastatin 40 mg PO HS 04/24/17 06/19/17 History Ferrous Sulfate [Feosol] 325 mg PO DAILY 06/19/17 06/19/17 History Naproxen [Naprosyn] 500 mg PO Q12HR PRN 06/19/17 06/19/17 History Allergies Allergy/AdvReac Type Severity Reaction Status Date / Time No Known Allergies Allergy Verified 06/19/17 14:36 Physical Exam Vitals: Vital Signs Temp Pulse Pulse Pulse Resp BP BP 06/20/17 07:00 97.9 F 96 20 161/72 06/20/17 00:26 98.5 F 06/19/17 22:02 99.4 F 66 16 153/77 06/19/17 16:57 56 L 16 06/19/17 16:39 97.6 F 54 L 12 161/69 06/19/17 15:18 98.1 F 56 L 16 153/70 06/19/17 14:58 97.5 F L 65 18 168/72 06/19/17 12:35 97.1 F L 57 L 16 163/74 Pulse Ox 06/20/17 07:00 06/20/17 00:26 06/19/17 22:02 96 06/19/17 16:57 06/19/17 16:39 98 06/19/17 15:18 96 06/19/17 14:58 96 06/19/17 12:35 99 Intake and Output 06/19/17 06/20/17 06/20/17 22:59 06:59 14:59 Intake Total 200 200 Balance 200 200 Intake: Oral 200 200 Other: Voiding Method Toilet # Voids 0 2 Weight 72.575 kg 72.575 kg Patient Weight 06/21/17 06:59 Weight 72.575 kg GENERAL EXAM: Alert, active, comfortable in no apparent distress. HEAD: Normocephalic. EYES: Normal reaction of pupils, equal size. NOSE: Clear with pink turbinates. THROAT: No erythema or exudates. NECK: No masses, no JVD. CHEST: No chest wall deformity. LUNGS: Equal air entry diminished in the left lung base. CVS: S1 and S2 normal with no audible murmur, regular rhythm. ABDOMEN: No hepatosplenomegaly, normal bowel sounds, no guarding or rigidity. SPINE: No scoliosis or deformity SKIN: No rashes CENTRAL NERVOUS SYSTEM: No focal deficits, tone is normal in all 4 extremities. EXTREMITIES: There is no peripheral edema. No clubbing, no cyanosis. Peripheral pulses are intact. Results - Laboratory Findings CBC and BMP: 06/20/17 06:47 06/20/17 06:47 PT/INR, D-dimer PT 12.4 sec (9.0-12.0) H 06/19/17 13:16 INR 1.3 (<1.2) H 06/19/17 13:16 Abnormal lab findings: Abnormal Labs 06/19/17 06/19/17 06/19/17 13:16 13:16 13:16 WBC 12.9 H RBC Hgb 12.9 L Hct MCHC 30.7 L Neutrophils # 8.4 H Lymphocytes # Eosinophils # 2.1 H PT INR BUN 26 H Creatinine 1.40 H AST 16 L Total Protein 6.2 L Albumin Urine Protein 1+ H Ur Leukocyte Esterase Moderate H Urine WBC 23 H Urine Bacteria Rare H Urine Mucus Rare H Ur Random Sodium 06/19/17 06/19/17 06/20/17 13:16 22:05 06:47 WBC RBC 3.93 L Hgb 11.5 L Hct 34.5 L MCHC Neutrophils # Lymphocytes # 0.9 L Eosinophils # 1.7 H PT 12.4 H INR 1.3 H BUN Creatinine AST Total Protein Albumin Urine Protein Ur Leukocyte Esterase Urine WBC Urine Bacteria Urine Mucus Ur Random Sodium 166 H 06/20/17 06:47 WBC RBC Hgb Hct MCHC Neutrophils # Lymphocytes # Eosinophils # PT INR BUN 28 H Creatinine 1.60 H AST 16 L Total Protein 5.2 L Albumin 2.8 L Urine Protein Ur Leukocyte Esterase Urine WBC Urine Bacteria Urine Mucus Ur Random Sodium - Diagnostic Findings Chest x-ray: image reviewed Assessment and Plan Assessment: Impression: #1 Dyspnea secondary to moderate to large recurrent left pleural effusion. #2 Massive retroperitoneal adenopathy encasing the aorta and inferior vena cava. Ill-definition of the left kidney. Early invasion into the transverse duodenum is difficult to exclude. #3 Acute kidney injury. #4 Urinary tract infection. #5 Hyperlipidemia. Plan: The patient was seen and evaluated by Dr. Brooks. He is recommending a repeat ultrasound-guided thoracentesis of the left pleural effusion and have the fluid sent for flow cytometry this time. This may give us an answer in regards to the suspected lymphoma. The patient is stable from the pulmonary standpoint and could possibly be discharged home later today following the procedure and he remains stable. He has been seen by surgical services, oncology and urology. We will continue to follow and make further recommendations based on his clinical status. I, the cosigning physician, have performed a history and physical examination on the patient. Lung sounds are mentioned left posterior base. Maintaining good O2 saturations in the 90s on room air. I have discussed the assessment and plan of care with my nurse practitioner, Mirna Friedman. I attest the above documented note as dictated by her. Time with Patient: Greater than 30
--- NOTE | 2017-06-20 14:04 | P.GSCN ---
History of Present Illness Consult date: 06/20/17 Reason for Consult: Retroperitoneal lymphadenopathy History of present illness: The patient is a 72-year-old gentleman brought into the hospital for further evaluation of retroperitoneal lymphadenopathy. He was seen by Dr. Tao for recurring lung infections. He was identified to have a pleural effusion is as well as large retroperitoneal and periaortic lymphadenopathy. Her asked to see the patient and assess him for urologic causes. The patient was interviewed at the bedside with his family. Had no problems voiding although he did admit to some hematuria week ago. His urinalysis had pyuria without hematuria on admission. At a PSA around 3 month ago. He has had no problems urinating. He has had weight loss. Review of Systems He denies chest pain and shortness of breath nausea vomiting. He has had weight loss. He has no problems voiding. Past Medical History Past Medical History: Asthma, GERD/Reflux, Hyperlipidemia, Prostate Disorder Additional Past Medical History / Comment(s): umbilical hernia, history of frequent lung infections History of Any Multi-Drug Resistant Organisms: None Reported Past Surgical History: Hernia Repair Past Anesthesia/Blood Transfusion Reactions: No Reported Reaction Smoking Status: Never smoker - Past Family History Father Family Medical History: Coronary Artery Disease (CAD), Myocardial Infarction ([place] ) Additional Family Medical History / Comment(s): "HARDENING OF THE ARTERIES", AT AGE 60 Mother Additional Family Medical History / Comment(s): HX DIVERTICULITIS -WENT IN FOR SX - FROM POST OP COMPLICATIONS/SEPSIS. Brother(s) Family Medical History: Cancer Medications and Allergies Home Medications Medication Instructions Recorded Confirmed Type Albuterol Inhaler [Ventolin Hfa 1 - 2 puff INHALATION RT-Q6H PRN 04/24/17 History Inhaler] Fluticasone/Salmeterol [Advair 1 inhalation PO RT-BID 04/24/17 06/19/17 History 500-50 Diskus] Simvastatin 40 mg PO HS 04/24/17 06/19/17 History Ferrous Sulfate [Iron (65 MG 325 mg PO DAILY 06/19/17 06/19/17 History Elemental)] Naproxen [Naprosyn] 500 mg PO Q12HR PRN 06/19/17 06/19/17 History Cephalexin [Keflex] 500 mg PO Q8HR #18 cap 06/20/17 Rx Allergies Allergy/AdvReac Type Severity Reaction Status Date / Time No Known Allergies Allergy Verified 06/19/17 14:36 Surgical - Exam Vital Signs Temp Pulse Resp BP Pulse Ox 97.1 F L 57 L 16 163/74 99 06/19/17 12:35 06/19/17 12:35 06/19/17 12:35 06/19/17 12:35 06/19/17 12:35 - General well developed, well nourished - Eyes PERRL - ENT no hearing loss - Neck trachea midline - Respiratory normal expansion, normal respiratory effort - Cardiovascular Rhythm: regular - Abdomen Abdomen: soft, non tender - Neurologic normal coordination, normal sensation - Musculoskeletal normal posture - Psychiatric oriented to time, oriented to person, oriented to place, speech is normal, memory intact Results Computed tomography scan is reviewed by myself. This is done without contrast. There is a significant amount of retroperitoneal adenopathy in the upper abdomen surrounding the aorta and the vena cava. The left kidney is not well seen. It is surrounded by adenopathy. Right kidney is normal. There appears to be unremarkable as does the prostate. - Labs 06/20/17 06:47 06/20/17 06:47 Abnormal Lab Results - Last 24 Hours (Table) 06/19/17 06/20/17 06/20/17 Range/Units 22:05 06:47 06:47 RBC 3.93 L (4.30-5.90) m/uL Hgb 11.5 L (13.0-17.5) gm/dL Hct 34.5 L (39.0-53.0) % Lymphocytes # 0.9 L (1.0-4.8) k/uL Eosinophils # 1.7 H (0-0.7) k/uL BUN 28 H (9-20) mg/dL Creatinine 1.60 H (0.66-1.25) mg/dL AST 16 L (17-59) U/L Total Protein 5.2 L (6.3-8.2) g/dL Albumin 2.8 L (3.5-5.0) g/dL Ur Random Sodium 166 H (30-90) mmol/L Microbiology - Last 24 Hours (Table) 06/19/17 13:16 Urine Culture - Preliminary Urine,Clean Catch Diabetes panel 06/20/17 Range/Units 06:47 Sodium 139 (137-145) mmol/L Potassium 4.7 (3.5-5.1) mmol/L Chloride 106 (98-107) mmol/L Carbon Dioxide 25 (22-30) mmol/L BUN 28 H (9-20) mg/dL Creatinine 1.60 H (0.66-1.25) mg/dL Glucose 91 (74-99) mg/dL Calcium 9.8 (8.4-10.2) mg/dL AST 16 L (17-59) U/L ALT 23 (21-72) U/L Alkaline Phosphatase 88 (38-126) U/L Total Protein 5.2 L (6.3-8.2) g/dL Albumin 2.8 L (3.5-5.0) g/dL Calcium panel 06/20/17 Range/Units 06:47 Calcium 9.8 (8.4-10.2) mg/dL Albumin 2.8 L (3.5-5.0) g/dL Pituitary panel 06/20/17 Range/Units 06:47 Sodium 139 (137-145) mmol/L Potassium 4.7 (3.5-5.1) mmol/L Chloride 106 (98-107) mmol/L Carbon Dioxide 25 (22-30) mmol/L BUN 28 H (9-20) mg/dL Creatinine 1.60 H (0.66-1.25) mg/dL Glucose 91 (74-99) mg/dL Calcium 9.8 (8.4-10.2) mg/dL Adrenal panel 06/20/17 Range/Units 06:47 Sodium 139 (137-145) mmol/L Potassium 4.7 (3.5-5.1) mmol/L Chloride 106 (98-107) mmol/L Carbon Dioxide 25 (22-30) mmol/L BUN 28 H (9-20) mg/dL Creatinine 1.60 H (0.66-1.25) mg/dL Glucose 91 (74-99) mg/dL Calcium 9.8 (8.4-10.2) mg/dL Total Bilirubin 0.5 (0.2-1.3) mg/dL AST 16 L (17-59) U/L ALT 23 (21-72) U/L Alkaline Phosphatase 88 (38-126) U/L Total Protein 5.2 L (6.3-8.2) g/dL Albumin 2.8 L (3.5-5.0) g/dL Assessment and Plan Assessment: Impression: Retroperitoneal lymphadenopathy recent for malignancy, lymphoma or metastatic disease. Stone history this does not sound prostatic. Because of the hematuria further urologic evaluation would be necessary if the cytology of the pleural effusion was nondiagnostic. I have given them my card. She will contact me if the cytology is nondiagnostic which case cystoscopy possible retrograde pyelograms would be indicated.
--- NOTE | 2017-06-20 14:52 | P.DS ---
Providers Date of admission: 06/19/17 14:49 Expected date of discharge: 06/20/17 Attending physician: Donell Bone MD Consults: 06/19/17 14:46 Consult Physician Routine Consulting Provider: Newton John Consult Reason/Comments: Retroperitoneal lymphadenopathy Do you want consulting provider notified?: Yes Consult Physician Routine Consulting Provider: Rohit Anne Consult Reason/Comments: Retroperitoneal lymphadenopathy Do you want consulting provider notified?: Yes 06/19/17 14:48 Consult Physician Routine Consulting Provider: Becca Fregoso Consult Reason/Comments: Retroperitoneal lymphadenopathy Do you want consulting provider notified?: Yes Consult Physician Routine Consulting Provider: González Valle Consult Reason/Comments: Retroperitoneal lymphadenopathy Do you want consulting provider notified?: Yes Primary care physician: [facility] Course: This is a 72-year-old very pleasant male patient of Dr. Tao with past medical history of asthma, GERD, hyperlipidemia, BPH who presents after being referred by Dr. Lowe for abnormal CT imaging findings. Patient was seen by Dr. Tao one month ago for recurrent lung infections and was sent for a chest x-ray on 04/23 was suggested moderate size left pleural effusion with a distended atelectasis. Patient underwent thoracentesis which could remove 1250 mL fluid which was cloudy in appearance, cytology was negative. CT chest was ordered to follow-up on pleural effusion which suggested moderate size left pleural effusion along with consolidation/atelectasis in the lingula along with retroperitoneal lymphadenopathy concerning for neoplasm. On 06/12/[address] abdomen and pelvis which suggested massive retroperitoneal T t encasing the aorta and inferior manner. Will ill-definition of the kidneys left greater than the right with possible perinephric stranding and suspected left-sided hydronephrosis. Moderate to large sized left-sided pleural effusion was also seen. Patient on evaluation endorses 25 pounds weight loss in the past 6 months with loss of appetite. For concern for neoplasm, interventional radiology was consulted to evaluate lymph node but could not be removed according to the radiology. Surgical removal of lymph node recommended. Due to left-sided hydronephrosis urology was consulted. Dr. oleary consulted for left-sided pleural effusion. Patient kept nothing by mouth for procedure. Patient denies any symptoms of cough or shortness of breath, denies any fever or chills, denies abdominal pain nausea or vomiting. He does endorses hematuria one week ago but denies any recent discomfort or decreased urination. 06/20: Patient has been seen by Dr. Deluca 4 retroperitoneal lymphadenopathy with recommendations for patient to follow-up at [facility] to have biopsy done. He will make arrangements for this. Patient evaluated by Dr. Momin for hematuria and patient may need outpatient cystoscopy if the cytology is nondiagnostic. Dr. John agrees with plan for outpatient percutaneous biopsy. Dr. Brooks and has recommended repeat ultrasound-guided thoracentesis of the left pleural fluid with flow cytometry. Patient was cleared by Dr. Brooks after procedure is completed. Patient denies having any abdominal pain. He has had a bowel movement. He denies shortness of breath. Patient will be discharged today in stable condition Discharge diagnoses: 1 left-sided pleural effusion with cough and congestion 2 urinary tract infection 3 chronic kidney disease stage III, possible acute kidney injury which is improved since June 12 with a creatinine of 1.82 4 Retroperitoneal lymphadenopathy 5 left hydronephrosis patient able to urinate without any abnormality. 6 asthma mild intermittent 7 hyperlipidemia Discharge plan: Return home Impression and plan of care have been directed as dictated by the signing physician. Kailey Trimble nurse practitioner acting as scribe for signing physician. Patient Condition at Discharge: Good Plan - Discharge Summary Discharge Rx Participant: Yes New Discharge Prescriptions: New Cephalexin [Keflex] 500 mg PO Q8HR #18 cap Continue Fluticasone/Salmeterol [Advair 500-50 Diskus] 1 inhalation PO RT-BID Albuterol Inhaler [Ventolin Hfa Inhaler] 1 - 2 puff INHALATION RT-Q6H PRN PRN Reason: Shortness Of Breath Simvastatin 40 mg PO HS Naproxen [Naprosyn] 500 mg PO Q12HR PRN PRN Reason: Pain Ferrous Sulfate [Iron (65 MG Elemental)] 325 mg PO DAILY Discharge Medication List Albuterol Inhaler [Ventolin Hfa Inhaler] 1 - 2 puff INHALATION RT-Q6H PRN [History] Fluticasone/Salmeterol [Advair 500-50 Diskus] 1 inhalation PO RT-BID 04/24/17 [ History] Simvastatin 40 mg PO HS 04/24/17 [History] Ferrous Sulfate [Iron (65 MG Elemental)] 325 mg PO DAILY 06/19/17 [History] Naproxen [Naprosyn] 500 mg PO Q12HR PRN 06/19/17 [History] Cephalexin [Keflex] 500 mg PO Q8HR #18 cap 06/20/17 [Rx] Follow up Appointment(s)/Referral(s): Becca Fregoso MD [STAFF PHYSICIAN] - 06/24/17 2:15 pm Lopez Deluca MD [STAFF PHYSICIAN] - 1 Week (office will call the patient to set up appt;patient needs biopsy at [facility]) Srinivasa Tao MD [Primary Care Provider] - 06/25/17 11:00 am Nash Momin MD [STAFF PHYSICIAN] - 07/02/17 9:20 am Discharge Disposition: HOME SELF-CARE
[2017-06-20 15:34] VITALS: BP 171/79; PULSE 68; RESP 18; TEMP 98
--- NOTE | 2017-06-20 16:04 | US ---
EXAMINATION TYPE: US thoracentesis DATE OF EXAM: 06/20/2017 COMPARISON: NONE HISTORY: Pleural effusion. FINDINGS: Maximal barrier technique was utilized. The skin overlying a suitable pocket of fluid was localized and the overlying skin prepped and draped. Lidocaine was used for local anesthesia. Ultras ound was used with sterile technique. A 5 Occitan catheter over guide needle was advanced into the pl eural fluid collection using ultrasound guidance and the catheter advanced, needle removed. Approxim ately 1.81 liter(s) of milky yellow fluid was removed. Catheter was withdrawn and hemostasis achieve d. There is no immediate complication. The patient discharged in stable condition without complicat ion. IMPRESSION: STATUS POST ULTRASOUND GUIDED THORACENTESIS, POST PROCEDURE CHEST X-RAY PENDING. THIS ND OCEDURE WAS PERFORMED BY THE UNDERSIGNED. Specimen sent for laboratory analysis.
--- NOTE | 2017-06-20 16:12 | XR ---
EXAMINATION TYPE: XR chest 1V DATE OF EXAM: 06/20/2017 COMPARISON: Prior chest x-ray 06/19/2017 HISTORY: Pleural effusion TECHNIQUE: Single frontal view of the chest is obtained. FINDINGS: Increased attenuation persists at the left lung base. No evident pneumothorax. No other si gnificant change. IMPRESSION: No evident complication status post left thoracentesis
--- NOTE | 2017-06-20 17:35 | P.CONS ---
History of Present Illness - Reason for Consult Consult date: 06/20/17 retorperitoneal adenopathy Requesting physician: Iesha Costa - Chief Complaint abnormal CT - History of Present Illness Mr. Carbajal is a very pleasant 72 year old male who had a left pleural effusion and enlarged medistinal lymph nodes, throacentesis was done, fluid was negative for malignancy so CT AP was done to evaluate for a primary source, pt found to have significant retroperitoneal adenopathy, pt was seen by Urology and Surgery and due to the proximity to critical blood vessels no biopsy is planned, recommended teritary care facility. Pt denies fevers, sweats, he has lost about 25 lbs on the last month, denies dysphagia, nausea, vomiting, appetite is fair, no abd pain, bloating, changes in bowel or bladder habits, MS c/o, weakness, numbness or tingling. No personal history of cancer, he has chronic back pain and asthma. He had another throacentesis with 1.8 L of fluid removed. Review of Systems 10 point ROS as stated in HPI Past Medical History Past Medical History: Asthma, GERD/Reflux, Hyperlipidemia, Prostate Disorder Additional Past Medical History / Comment(s): umbilical hernia, history of frequent lung infections History of Any Multi-Drug Resistant Organisms: None Reported Past Surgical History: Hernia Repair Past Anesthesia/Blood Transfusion Reactions: No Reported Reaction Past Psychological History: Unable to Obtain Smoking Status: Never smoker Past Drug Use History: Unable to Obtain - Past Family History Father Family Medical History: Coronary Artery Disease (CAD), Myocardial Infarction (MT ) Additional Family Medical History / Comment(s): "HARDENING OF THE ARTERIES", AT AGE 60 Mother Additional Family Medical History / Comment(s): HX DIVERTICULITIS -WENT IN FOR SX - FROM POST OP COMPLICATIONS/SEPSIS. Brother(s) Family Medical History: Cancer Medications and Allergies Home Medications Medication Instructions Recorded Confirmed Type Albuterol Inhaler [Ventolin Hfa 1 - 2 puff INHALATION RT-Q6H PRN 04/24/17 History Inhaler] Fluticasone/Salmeterol [Advair 1 inhalation PO RT-BID 04/24/17 06/19/17 History 500-50 Diskus] Simvastatin 40 mg PO HS 04/24/17 06/19/17 History Ferrous Sulfate [Iron (65 MG 325 mg PO DAILY 06/19/17 06/19/17 History Elemental)] Naproxen [Naprosyn] 500 mg PO Q12HR PRN 06/19/17 06/19/17 History Cephalexin [Keflex] 500 mg PO Q8HR #18 cap 06/20/17 Rx Allergies Allergy/AdvReac Type Severity Reaction Status Date / Time No Known Allergies Allergy Verified 06/19/17 14:36 Physical Exam Vitals: Vital Signs Temp Pulse Pulse Resp BP BP Pulse Ox 06/20/17 15:33 98.0 F 68 18 171/79 169/81 97 06/20/17 15:27 66 20 145/70 96 06/20/17 15:20 66 20 151/77 96 06/20/17 15:10 70 20 153/75 96 06/20/17 07:00 97.9 F 96 20 161/72 06/20/17 00:26 98.5 F 06/19/17 22:02 99.4 F 66 16 153/77 96 Intake and Output 06/20/17 06/20/17 06/20/17 06:59 14:59 22:59 Intake Total 200 240 Balance 200 240 Intake: Oral 200 240 Other: # Voids 2 3 Weight 72.575 kg Patient Weight 06/21/17 06:59 Weight 72.575 kg - Constitutional General appearance: average body habitus, cooperative, no acute distress - EENT Eyes: anicteric sclerae, EOMI, normal appearance ENT: hearing grossly normal, normal oropharynx - Neck Neck: no lymphadenopathy - Respiratory Respiratory: bilateral: CTA - Cardiovascular Rhythm: regular Heart sounds: normal: S1, S2 leg Peripheral Edema: bilateral: None - Gastrointestinal General gastrointestinal: no absent bowel sounds, no decreased bowel sounds, no distended, no hepatomegaly, no hyperactive bowel sounds, normal bowel sounds, no organomegaly, no rigid, no scaphoid, soft, no splenomegaly, no tenderness, no umbilical hernia, no ventral hernia - Integumentary Integumentary: normal - Neurologic Neurologic: CNII-XII intact - Musculoskeletal Musculoskeletal: strength equal bilaterally - Psychiatric Psychiatric: A&O x's 3, appropriate affect, intact judgment & insight Results CBC & Chem 7: 06/20/17 06:47 06/20/17 06:47 Labs: Abnormal Lab Results - Last 24 Hours (Table) 06/19/17 06/20/17 06/20/17 Range/Units 22:05 06:47 06:47 RBC 3.93 L (4.30-5.90) m/uL Hgb 11.5 L (13.0-17.5) gm/dL Hct 34.5 L (39.0-53.0) % Lymphocytes # 0.9 L (1.0-4.8) k/uL Eosinophils # 1.7 H (0-0.7) k/uL BUN 28 H (9-20) mg/dL Creatinine 1.60 H (0.66-1.25) mg/dL AST 16 L (17-59) U/L Total Protein 5.2 L (6.3-8.2) g/dL Albumin 2.8 L (3.5-5.0) g/dL Ur Random Sodium 166 H (30-90) mmol/L Microbiology - Last 24 Hours (Table) 06/19/17 13:16 Urine Culture - Preliminary Urine,Clean Catch Chest x-ray: report reviewed CT scan - abdomen: report reviewed CT scan - chest: report reviewed CT scan - pelvis: report reviewed Assessment and Plan (1) Retroperitoneal lymphadenopathy Narrative/Plan: Concerning for malignant process. Biopsy necessary so, pt is being referred to [facility]. This will be set up through the office and pt will be contacted with appt date and time as well as a follow up appt with Dr. Deluca for results and POC. Pt verbalized understanding. Pt is ok for discharge once considered stable and cleared by Medicine and Consults. Status: Acute Priority: High Code(s): R59.0 - LOCALIZED ENLARGED LYMPH NODES SNOMED Code(s): 483463404
[2017-06-20 20:45] LABS: RBC, Body Fluid 330 /uL
[2017-06-20 20:49] LABS: Body Fluid Comment Few Mesothelial
[2017-06-21 01:55] LABS: T. Protein, Body Fluid Source Pleural Fluid; Total Protein, Body Fluid 3220 mg/dL
[2017-06-21 02:21] LABS: Glucose, BF Source Pleural Fluid; LDH, Body Fluid Source Pleural Fluid
== END 2017-06-20 16:20 | disposition home or self-care (01) | DRG 187 ==
LOC: EC 12:28 → 5MS5E 14:49 → 5ONC 06-20 12:05
PROVIDERS: ADMIT Internal Medicine; ATTEND Internal Medicine
PROC: 0W9B3ZX Drainage of Left Pleural Cavity, Percutaneous Approach, Diagnostic (ICD-10-PCS; principal; 2017-06-20)
DX: J90 Pleural effusion, not elsewhere classified (principal); N39.0 Urinary tract infection, site not specified; N17.9 Acute kidney failure, unspecified; N13.30 Unspecified hydronephrosis; E78.5 Hyperlipidemia, unspecified; K21.9 Gastro-esophageal reflux disease without esophagitis; N40.0 Benign prostatic hyperplasia without lower urinary tract symptoms; R59.0 Localized enlarged lymph nodes; N18.3 Chronic kidney disease, stage 3 (moderate); J45.20 Mild intermittent asthma, uncomplicated; F41.9 Anxiety disorder, unspecified; Z79.899 Other long term (current) drug therapy; Z87.19 Personal history of other diseases of the digestive system; Z85.72 Personal history of non-Hodgkin lymphomas; Z82.49 Family history of ischemic heart disease and other diseases of the circulatory system; Z80.9 Family history of malignant neoplasm, unspecified
CPT/HCPCS: 32555; 71010; 71020; 80053; 81001; 82570; 82945; 83615; 83735; 84100; 84157; 84300; 85025; 85610; 85730; 87070; 87075; 87086; 87205; 88108; 88305; 89050; 99284

== ENCOUNTER → 2022-10-24 | Outpatient (CLI) | payer MEDICARE ==
--- NOTE | 2022-10-26 07:46 | US ---
EXAMINATION TYPE: US arterial LE single level DATE OF EXAM: 10/24/2022 3:51 PM CLINICAL HISTORY: I73.9 claudication, T14.90 wound. wound left toe. History of: Smoker: No Hypertension: No Diabetic: No Hyperlipidemia: No TIA/CVA: Yes Previous Vascular Surgery: No CAD: No TN: No Vascular Ulcers: Left Claudication: No Gangrene: No Doppler Waveforms: Right: Biphasic to monophasic Left: Monophasic Right Brachial Pressure: 163 Left Brachial Pressure: 157 Ankle-Brachial Indices: Right: 0.90 Left: 0.56 Toe Brachial Indices: Right: 0.66 Left: Unable to due to wound on toe. Loss of phasicity. Diminished left-sided GUDELIA. IMPRESSION: Diminished left-sided GUDELIA and loss of phasicity consistent with at least moderate periph eral arterial disease in the left lower extremity. Further workup and follow-up advised.
--- NOTE | 2022-10-26 07:47 | US ---
EXAMINATION TYPE: US arterial UE single level DATE OF EXAM: 10/24/2022 4:22 PM CLINICAL HISTORY: I73.9 claudication, T14.90 wound. Decreased pulses. History of: Smoker: No Hypertension: No Diabetic: No Hyperlipidemia: No TIA/CVA: Yes Previous Vascular Surgery: No CAD: No SD: No Vascular Ulcers: No Claudication: No Gangrene: No Doppler Waveforms: Right: Axillary: Monophasic Brachial: Biphasic Radial: Monophasic Ulnar: Monophasic Left: Axillary: Monophasic Brachial: Monophasic Radial: Biphasic Ulnar: Multiphasic Wrist Brachial Indices: Right: 1.17 Left: 1.06 Some loss of phasicity bilaterally is favored technical given normal pressures. IMPRESSION: Normal wrist brachial index values bilaterally.
== END | disposition home or self-care (01) ==
LOC: RADUSWWP 14:53
PROVIDERS: ATTEND Surgery
DX: I73.9 Peripheral vascular disease, unspecified (principal); R00.1 Bradycardia, unspecified; T14.90XA Injury, unspecified, initial encounter
CPT/HCPCS: 93922

== ENCOUNTER 2022-11-16 09:50 | Day surgery (SDC) | payer MEDICARE ==
[~2022-11-16 09:50] MED LIST changes: -ALPRAZolam 0.25 MG TAB PO ONE; +SODIUM CHLORIDE 0.9% 1,000 ML in EMPTY BAG 1 BAG IV ONE
[2022-11-16 10:50] LABS: Basophils % (A) 1 %; Eosinophils # (A) 0.5 k/uL (0-0.7); Eosinophils % (A) 6 %; HCT 36.7 % (39.0-53.0); Lymphocytes # (A) 1.4 k/uL (1.0-4.8); Lymphocytes % (A) 18 %; MCH 31.9 pg (25.0-35.0); MCHC 32.7 g/dL (31.0-37.0); MCV 97.4 fL (80.0-100.0); Mean Platelet Volume 9.2; Monocytes # (A) 0.7 k/uL (0-1.0); Monocytes % (A) 8 %; Neutrophils # (A) 5.3 k/uL (1.3-7.7); Neutrophils % (A) 65 %; Platelet Count 268 k/uL (150-450); RBC 3.77 m/uL (4.30-5.90); RDW 14.1 % (11.5-15.5); WBC 8.2 k/uL (3.8-10.6)
[2022-11-16 11:04] LABS: Calcium 8.4 mg/dL (8.4-10.2); Potassium 4.7 mmol/L (3.5-5.1)
[2022-11-16] MEDS ORDERED: LIDOCAINE 1% INJ 10MG/ML (20 ML MDV) SQ ONE (12:57)
[2022-11-16] MEDS ORDERED: MIDAZOLAM 2 MG/2 ML VIAL IV ONE (12:58)
[2022-11-16] MEDS ORDERED: fentaNYL (PF) 50 MCG/ML 2 ML AMP IV ONE (12:58)
[2022-11-16] MEDS ORDERED: IOPAMIDOL-370 125ML BTL INJ ONE (13:14)
--- NOTE | 2022-11-16 13:41 | P.OP ---
Date of Procedure: 11/16/22 Description of Procedure: Preoperative diagnosis: Left lower extremity wound and cellulitis, peripheral arterial disease left lower extremity Postoperative diagnosis: Same Procedure: Ultrasound-guided right common femoral artery access Aortogram with runoffs Moderate conscious sedation 21 minutes, tract monitoring of certified RN administration with hemodynamic monitoring Surgeon: Dianna Sutton D.O. EBL: Less than 5 mL IV fluids: See records Urine output: None Complications: None immediately apparent Condition: Stable to recovery Operative indication and findings: Patient is a 77-year-old male with cellulitis and a nonhealing wound of his left lower extremity. He with diminished waveforms on the left and evidence of popliteal disease. Given these findings it was decided to go forward with an angiogram. Risks and benefits were discussed. He seemingly understood and was willing to proceed. Procedure in detail: [Patient was taken to the operative suite and placed in supine position. Bilateral groins are prepped and draped in usual sterile fashion. A preprocedure timeout was performed, all parties were in agreement. Using ultrasound, the right common femoral artery was identified. The skin overlying was anesthetized. The artery is found be patent without significant calcific disease in the prone images stored. Using ultrasound guidance, micro- access needle was used to access the vessel and Seldinger technique was used to place a 5-Khmer sheath. Catheters and wires were used access the aorta. Aortogram was performed. Catheters and wires were then brought down to the level of the aortic bifurcation and repeat imaging was performed down the bilateral lower extremities. Catheters wires were then removed. The sheath was removed and hemostasis was achieved with manual pressure. A dressing was placed. Angiographic findings the aorta appeared mildly tortuous fevers as well as the celiac and superior mesenteric arteries are patent without disease. The bilateral renal arteries appear patent without significant disease. There are multiple lumbar arteries visualized. In the level of the distal aorta and common iliac arteries are is some mild calcific disease but none appear bilaterally the common, internal and Arteries appeared relatively disease-free, there is some calcium through the wall but no areas of flow-limiting stenosis. The common femoral, proximal superficial femoral and profunda arteries appear patent with mild disease down the right there is diffuse very mild disease superficial femoral artery. On the left there is an area of complete occlusion at the level of Shashi's canal the popliteal arteries bilaterally appear patent without significant disease. There is mild diffuse disease through the infrapopliteal arteries with diminished visualization. There does appear to be at least takeoff of the anterior tibial and tibial peroneal trunk on the right. On the left a anterior tibial and tibial peroneal trunk appear patent. The vessels are diminutive beyond the. There is multiple of the liver popliteal disease bilaterally. Plan - Discharge Summary Discharge Rx Participant: No New Discharge Prescriptions: No Action Simvastatin 40 mg PO DAILY Naproxen [Naprosyn] 500 mg PO Q12HR PRN PRN Reason: Pain DULoxetine HCL [Cymbalta] 30 mg PO HS lisinopriL 2.5 mg PO HS Clopidogrel [Plavix] 75 mg PO DAILY Aspirin [Adult Low Dose Aspirin EC] 81 mg PO DAILY Discharge Medication List Simvastatin 40 mg PO DAILY 04/24/17 [History] Naproxen [Naprosyn] 500 mg PO Q12HR PRN 06/19/17 [History] Clopidogrel [Plavix] 75 mg PO DAILY 11/12/22 [History] DULoxetine HCL [Cymbalta] 30 mg PO HS 11/12/22 [History] lisinopriL 2.5 mg PO HS 11/12/22 [History] Aspirin [Adult Low Dose Aspirin EC] 81 mg PO DAILY 11/16/22 [History]
--- NOTE | 2022-11-16 13:48 | IR ---
EXAMINATION TYPE: IR angio abdominal w runoff DATE OF EXAM: 11/16/2022 COMPARISON: NONE HISTORY: Fluoroscopy time. Fluoroscopy was provided to the referring clinician.
[2022-11-17 08:33] VITALS: BP 149/73; PULSE 61; RESP 16; TEMP 98.4
[2022-11-17] MEDS ORDERED: DULoxetine HCL 30 MG CAPSULE.DR PO SCH (21:00)
--- NOTE | 2022-11-17 23:11 | P.CONS ---
History of Present Illness - Reason for Consult Consult date: 11/17/22 Medical management - Chief Complaint Left femoral angiogram - History of Present Illness Patient is a 71-year-old male with a known history of CVA with right-sided weakness walks with a cane, GERD, hypertension, hyperlipidemia, and left foot ulcer and is on follow-up with wound care clinic was admitted to hospital for left lower extremity angiogram. Angiographic findings: Angiographic findings the aorta appeared mildly tortuous fevers as well as the celiac and superior mesenteric arteries are patent without disease. The bilateral renal arteries appear patent without significant disease. There are multiple lumbar arteries visualized. In the level of the distal aorta and common iliac arteries are is some mild calcific disease but none appear bilaterally the common, internal and Arteries appeared relatively disease-free, there is some calcium through the wall but no areas of flow-limiting stenosis. The common femoral, proximal superficial femoral and profunda arteries appear patent with mild disease down the right there is diffuse very mild disease superficial femoral artery. On the left there is an area of complete occlusion at the level of Shashi's canal the popliteal arteries bilaterally appear patent without significant disease. There is mild diffuse disease through the infrapopliteal arteries with diminished visualization. There does appear to be at least takeoff of the anterior tibial and tibial peroneal trunk on the right. On the left a anterior tibial and ti bial peroneal trunk appear patent. Postoperatively patient's blood pressure went up to 205/88 and pulse 66 respiratory 16 pulse ox 100% on room air. Patient was admitted to hospital for blood pressure management. Laboratory data showed WBC 8.2 hemoglobin 12.0 and platelets 268 Sodium 140 potassium 4.7 chloride 110 bicarb is 27 BUN 28 and creatinine 1.66 Review of Systems PHYSICAL EXAMINATION: Patient is lying in the bed comfortably, no acute distress, awake alert and oriented.. HEENT: Normocephalic. Neck is supple. Pupils reactive. Nostrils clear. Oral cavity is moist. Neck reveals no JVD, carotid bruits, or thyromegaly. CHEST EXAMINATION: Trachea is central. Symmetrical expansion. Lung nielson clear to auscultation and percussion. CARDIAC: Normal S1, S2 with no gallops. No murmurs ABDOMEN: Soft. Bowel sounds present. Nontender. No organomegaly. No abdominal bruits. Extremities: reveal no edema. No clubbing or cyanosis Neurologically awake, alert, oriented x3 with well-coordinated movements. No focal deficits noted Skin: No rash or skin lesions. Psychiatric: Coperative. Nonsuicidal, Musculoskeletal: No joint swelling or deformity. Normal range of motion. Past Medical History Past Medical History: Cancer, CVA/TIA, GERD/Reflux, Hyperlipidemia, Hypertension, Prostate Disorder, Renal Disease Additional Past Medical History / Comment(s): umbilical hernia, b cell lymphoma, rt hand weak rt side is weaker as far as mobility, low grade kidney disease, History of Any Multi-Drug Resistant Organisms: None Reported Past Surgical History: Hernia Repair Past Anesthesia/Blood Transfusion Reactions: No Reported Reaction Additional Past Anesthesia/Blood Transfusion Reaction / Comm: blood transfusions with lymphoma shu well Past Psychological History: No Psychological Hx Reported Smoking Status: Never smoker Past Alcohol Use History: Rare Past Drug Use History: Unable to Obtain - Past Family History Father Family Medical History: Coronary Artery Disease (CAD), Myocardial Infarction ([place]) Additional Family Medical History / Comment(s): "HARDENING OF THE ARTERIES", AT AGE 60 Mother Additional Family Medical History / Comment(s): HX DIVERTICULITIS -WENT IN FOR SX - FROM POST OP COMPLICATIONS/SEPSIS. Brother(s) Family Medical History: Cancer Medications and Allergies Home Medications Medication Instructions Recorded Confirmed Type Simvastatin 40 mg PO DAILY 04/24/17 11/16/22 History Naproxen [Naprosyn] 500 mg PO Q12HR PRN 06/19/17 11/16/22 History Clopidogrel [Plavix] 75 mg PO DAILY 11/12/22 11/16/22 History DULoxetine HCL [Cymbalta] 30 mg PO HS 11/12/22 11/16/22 History lisinopriL 2.5 mg PO HS 11/12/22 11/16/22 History Aspirin [Adult Low Dose Aspirin EC] 81 mg PO DAILY 11/16/22 11/16/22 History Allergies Allergy/AdvReac Type Severity Reaction Status Date / Time No Known Allergies Allergy Verified 11/12/22 14:36 Physical Exam Vitals: Vital Signs Temp Pulse Pulse Resp BP Pulse Ox 11/17/22 07:00 98.4 F 61 16 149/73 98 11/17/22 02:03 98.2 F 52 L 15 145/73 99 11/16/22 22:21 63 132/65 11/16/22 20:58 63 181/72 11/16/22 20:00 98.3 F 62 18 191/73 98 11/16/22 16:00 57 L 16 129/77 99 11/16/22 15:00 98.4 F 57 L 16 152/77 100 11/16/22 14:15 60 16 162/72 11/16/22 13:45 78 16 198/88 100 Intake and Output 11/16/22 11/17/22 11/17/22 22:59 06:59 14:59 Intake Total 100 Output Total 200 300 Balance -100 -300 Intake: Oral 100 Output: Urine 200 300 Other: Voiding Method Urinal # Voids 1 1 # Bowel Movements 1 Weight 74.6 kg PHYSICAL EXAMINATION: Patient is lying in the bed comfortably, no acute distress, awake alert and oriented.. HEENT: Normocephalic. Neck is supple. Pupils reactive. Nostrils clear. Oral cavity is moist. Neck reveals no JVD, carotid bruits, or thyromegaly. CHEST EXAMINATION: Trachea is central. Symmetrical expansion. Lung nielson clear to auscultation and percussion. CARDIAC: Normal S1, S2 with no gallops. No murmurs ABDOMEN: Soft. Bowel sounds present. Nontender. No organomegaly. No abdominal bruits. Extremities: reveal no edema. No clubbing or cyanosis Neurologically awake, alert, oriented x3 right-sided weakness with muscle strength 4 out of 5. Skin: Left plantar ulcer with no evidence of infection. Psychiatric: Coperative. Nonsuicidal, Musculoskeletal: No joint swelling or deformity. Normal range of motion. Results CBC & Chem 7: 11/16/22 10:10 11/16/22 10:10 Labs: Abnormal Lab Results - Last 24 Hours (Table) 11/16/22 11/16/22 Range/Units 10:10 10:10 RBC 3.77 L (4.30-5.90) m/uL Hgb 12.0 L (13.0-17.5) gm/dL Hct 36.7 L (39.0-53.0) % Chloride 110 H (98-107) mmol/L BUN 28 H (9-20) mg/dL Creatinine 1.66 H (0.66-1.25) mg/dL Assessment and Plan Assessment: Accelerated essential hypertension likely due to pain and anxiety. Improved now. Continue with home dose of lisinopril 2.5 mg at bedtime Chronic left foot ulcer Status post left femoral angiogram. Postoperative day 1 History of CVA with right-sided weakness. Hypertension Hyperlipidemia Prostate disorder CKD stage III GERD History of B-cell lymphoma DVT prophylaxis with heparin subcu Plan: Patient will be continued on lisinopril 2.5 mg at bedtime. Monitor blood pressure and titrate as needed. Controlled at this time. Continue with aspirin and Plavix. Continue with statins. Patient is currently hemodynamically stable. Follow-up with primary care physician for repeat blood pressure check and renal function follow-up. Patient is being discharged home today. Discharge medication reconciliation was done. Follow-up with primary care physician next 3 to 5 days. Continued wound care and vascular surgery follow-up. Time with Patient: Greater than 30
[2022-11-18] MEDS ORDERED: ATORVASTATIN 20 MG TAB PO SCH (09:00)
== END 2022-11-17 11:35 | disposition home or self-care (01) ==
LOC: CATHCVL 09:50 → 6NMEDSUR 13:16 → CATHCVL 11-17 11:35
PROVIDERS: ATTEND Surgery
DX: I70.262 Atherosclerosis of native arteries of extremities with gangrene, left leg (principal); J45.909 Unspecified asthma, uncomplicated; F41.9 Anxiety disorder, unspecified; E78.00 Pure hypercholesterolemia, unspecified; N40.0 Benign prostatic hyperplasia without lower urinary tract symptoms; K21.9 Gastro-esophageal reflux disease without esophagitis; Z79.899 Other long term (current) drug therapy; Z79.82 Long term (current) use of aspirin; Z79.01 Long term (current) use of anticoagulants; R73.9 Hyperglycemia, unspecified; Z85.71 Personal history of Hodgkin lymphoma; M19.90 Unspecified osteoarthritis, unspecified site; Z82.49 Family history of ischemic heart disease and other diseases of the circulatory system; Z80.2 Family history of malignant neoplasm of other respiratory and intrathoracic organs
CPT/HCPCS: 80048; 85025; 36245; 99152; J2250; J2001; J3010; Q9967; 36200; 75625; 75716; 76937

== ENCOUNTER → 2022-11-27 | Outpatient (CLI) | payer MEDICARE ==
--- NOTE | 2022-11-27 17:18 | XR ---
EXAMINATION TYPE: XR chest 2V, XR ribs 4 views RT DATE OF EXAM: 11/27/2022 COMPARISON: None HISTORY: 77-year-old male S23.41XS SPRAIN OF RIBS, SEQUELA FINDINGS: Chest: The cardiomediastinal silhouette, aorta, and pulmonary vasculature are within normal limits. L ungs and pleural spaces are clear. [facility] lower thoracic spine. Right ribs: There is a lateral right eighth rib fracture displaced minimally by 3 mm. IMPRESSION: Lateral right eighth rib fracture displaced minimally by 3 mm. No underlying acute cardiopulmonary pr ocess.
== END | disposition home or self-care (01) ==
LOC: RADXRMAIN 15:33
PROVIDERS: ATTEND Internal Medicine Geriatric Medicine
DX: S22.31XA Fracture of one rib, right side, initial encounter for closed fracture (principal); S23.41XS Sprain of ribs, sequela
CPT/HCPCS: 71046

== ENCOUNTER → 2022-12-24 | Outpatient (CLI) | payer MEDICARE | END | disposition home or self-care (01) | LOC: LABPAT 11:47 | PROVIDERS: ATTEND Anesthesiology | DX: Z01.812 Encounter for preprocedural laboratory examination (principal); I44.4 Left anterior fascicular block; R94.31 Abnormal electrocardiogram [ECG] [EKG] | CPT/HCPCS: 82565; 84132; 84520; 85027; 86850; 86900; 86901; 93005 ==

== ENCOUNTER → 2023-01-04 | Outpatient (CLI) | payer MEDICARE ==
[2023-01-04 20:31] LABS: African American GFR (CKD) 37.2 (60.0-200.0); Albumin 4.3 g/dL (3.8-4.9); Albumin/Globulin Ratio 1.91 (1.60-3.17); Anion Gap 14.2 mmol/L (10.00-18.00); BUN/Creat Ratio 22.23 Ratio (12.00-20.00); Blood Urea Nitrogen 43.8 mg/dL (9.0-27.0); Calcium 9.8 mg/dL (8.7-10.3); Carbon Dioxide 17.8 mmol/L (20.0-27.5); Globulin 2.3 g/dL (1.6-3.3); Non-African American GFR(CKD) 32.1 (60.0-200.0); Potassium 5.8 mmol/L (3.5-5.5); Total Bilirubin 0.3 mg/dL (0.30-1.20); Total Protein 6.6 g/dL (6.2-8.2)
[2023-01-04 20:39] LABS: Basophils # (A) 0.09 X 10*3/uL (0.00-0.10); Basophils % (A) 0.8 %; Eosinophils # (A) 0.37 X 10*3/uL (0.04-0.35); Eosinophils % (A) 3.4 %; HCT 45.4 % (39.6-50.0); HGB 13.9 g/dL (13.0-17.0); Immature Grans, Automated 1.5 %; Lymphocytes # (A) 2.19 X 10*3/uL (0.90-5.00); Lymphocytes % (A) 20.2 %; MCH 31.4 pg (27.0-32.0); MCHC 30.6 g/dL (32.0-37.0); MCV 102.7 fL (80.0-97.0); Mean Platelet Volume 12.3 fL (9.5-12.2); Monocytes # (A) 1.02 X 10*3/uL (0.20-1.00); Monocytes % (A) 9.4 %; NRBC Per 100 WBC 0 /100 WBCS (0.0-0.0); Neutrophils # (A) 7.03 X 10*3/uL (1.80-7.70); Neutrophils % (A) 64.7 %; Platelet Count 299 X 10*3/uL (140-440); RBC 4.42 X 10*6/uL (4.40-5.60); RDW 14.4 % (11.5-14.5); WBC 10.86 X 10*3/uL (4.50-10.00)
== END | disposition home or self-care (01) ==
LOC: LABWHC1 12:57
PROVIDERS: ATTEND Internal Medicine Geriatric Medicine
DX: N18.9 Chronic kidney disease, unspecified (principal); E87.5 Hyperkalemia
CPT/HCPCS: 36415; 80053; 85025

== ENCOUNTER → 2023-01-22 | Outpatient (CLI) | payer MEDICARE ==
[2023-01-22 15:51] LABS: INR 0.9 (<1.2); Partial Thromboplastin Time 23.3 sec (22.0-30.0)
== END | disposition home or self-care (01) ==
LOC: LABPAT 15:10
PROVIDERS: ATTEND Anesthesiology
DX: Z01.812 Encounter for preprocedural laboratory examination (principal); I73.9 Peripheral vascular disease, unspecified; E87.5 Hyperkalemia; Z98.62 Peripheral vascular angioplasty status
CPT/HCPCS: 84132; 85610; 85730

== ENCOUNTER → 2023-01-28 | Outpatient (CLI) | payer MEDICARE | END | disposition home or self-care (01) | LOC: LABWHC1 14:11 | PROVIDERS: ATTEND Internal Medicine Geriatric Medicine | DX: E87.5 Hyperkalemia (principal) | CPT/HCPCS: 36415; 84132 ==

== ENCOUNTER 2023-01-29 07:16 | Day surgery (SDC) | payer MEDICARE ==
[2023-01-24 13:09] VITALS: BMI 22.8
[~2023-01-29 07:16] MED LIST changes: +DEXAMETHASONE SOD PHOSPHATE 4 MG/ML 1 ML VIAL IV ONE; +HYDROmorphone 0.5 MG/0.5 ML SYRINGE IVP PRN; +ONDANSETRON 4 MG/2 ML VIAL IVP ONE; -SODIUM CHLORIDE 0.9% 1,000 ML in EMPTY BAG 1 BAG IV ONE
[2023-01-29] MEDS ORDERED: ONDANSETRON 4 MG/2 ML VIAL ONE (07:33)
[2023-01-29] MEDS ORDERED: MIDAZOLAM 2 MG/2 ML VIAL IVP ONE (08:05)
[2023-01-29] MEDS ORDERED: LACTATED RINGERS 1,000 ML IV ONE ×4 (08:05→11:15)
[2023-01-29] MEDS ORDERED: DEXAMETHASONE SOD PHOSPHATE 4 MG/ML 1 ML VIAL IVP ONE (08:10)
[2023-01-29] MEDS ORDERED: fentaNYL (PF) 50 MCG/ML 2 ML AMP IVP ONE ×3 (08:18→08:29)
[2023-01-29] MEDS ORDERED: SUCCINYLCHOLINE CHLORIDE 200 MG/10 ML VIAL IV ONE (08:57)
[2023-01-29] MEDS ORDERED: GLYCOPYRROLATE 0.2 MG/ML 2 ML VIAL ONE (08:57)
[2023-01-29] MEDS ORDERED: LIDOCAINE 2% INJ 20 MG/ML (2 ML VIAL) ONE (08:57)
[2023-01-29] MEDS ORDERED: NEOSTIGMINE 1 MG/ML 10 ML VIAL ONE (08:57)
[2023-01-29] MEDS ORDERED: ROCURONIUM 10 MG/ML (5 ML VIAL) IV ONE (08:57)
[2023-01-29] MEDS ORDERED: PROPOFOL 10 MG/ML 20 ML VIAL IV ONE (08:57)
[2023-01-29] MEDS ORDERED: PHENYLEPHRINE-0.9% NACL SYG 1,000 MCG/10 ML SYRINGE ONE (08:57)
[2023-01-29] MEDS ORDERED: HEPARIN SODIUM,PORCINE 5,000 UNIT/ML 1 ML VIAL ONE (08:57)
[2023-01-29] MEDS ORDERED: fentaNYL (PF) 50 MCG/ML 2 ML AMP ONE (08:57)
[2023-01-29] MEDS ORDERED: HEPARIN SODIUM,PORCINE 10,000 UNIT in SODIUM CHLORIDE 0.9% 1,000 ML IRRIGATION ONE (09:41)
[2023-01-29] MEDS ORDERED: ceFAZolin 4 GM in SODIUM CHLORIDE 0.9% 1,000 ML IRRIGATION ONE (09:41)
[2023-01-29] MEDS ORDERED: GELATIN SPONGE,ABSORB (LARGE) 1 EACH SPONGE TOPICAL ONE (10:26)
[2023-01-29] MEDS ORDERED: THROMBIN (BOVINE) 5,000 UNIT VIAL TOPICAL ONE (10:27)
--- NOTE | 2023-01-29 11:09 | P.OP ---
Date of Procedure: 01/29/23 Description of Procedure: Preoperative diagnosis: Left femoral popliteal artery occlusive disease, Mccone 5 peripheral arterial disease with wounds Postoperative diagnosis: Same Procedure: Left femoral popliteal endarterectomy with patch angioplasty Surgeon: Dianna Sutton D.O. Asst.: Srinivasa Tinsley EBL: 75 mL IV fluids: See records Urine output: See records Drains: None Complications: None immediately apparent Condition: Stable to recovery Operative indication and findings: Patient is a 78-year-old male with severe peripheral arterial disease and previous findings of a 4-5 cm segment of occlusion at the femoral popliteal level of his left leg. Due to his wounds it was decided to go forward with intervention, patient stated he would not be able to lay flat for intervention and postoperative care for his possible endovascular intervention, this along with the contrast risk given his chronic k idney disease a decision was made to go forward with an open endarterectomy and patch angioplasty at the above-knee fem-pop popliteal segment. Risks and benefits were discussed. He similar symptoms like to proceed. Procedure in detail: The patient was taken to the operative suite and placed in supine position. Bilateral groins and left lower extremity prepped and draped in usual sterile fashion. A preprocedure timeout was performed and all parties are in agreement. A longitudinal incision was made was made above the knee proximal to the femoral condyle and the intermuscular groove. It was deepened through subcutaneous tissues with electrocautery. Laura's fascia was opened sharply. The femoral popliteal segment was dissected free. Proximally there was a palpable pulse then there was a significant area of hardened vessel at the popliteal level a soft appearing vessel with no obvious pulsatile flow. A Doppler was used to confirm patency. At this point the other branches were also encircled with vessel loops. The patient was heparinized. An arteriotomy was performed and the Johnson-Harris scissors was utilized to enlarge the arteriotomy. An endarterectomy was performed. There was not significant intraluminal calcium noted, did appear to be mostly in the medial layer. The endarterectomized surface was cleared of all debris. The distal outflow was tacked with 7-0 Prolene to avoid creation of a flap. A bovine pericardial patch was utilized and anastomosis was created utilizing 5-0 Prolene. The anastomosis was flushed and flow was reinstituted. Hemostasis was achieved with interrupted sutures of 6-0 Prolene and thrombin and Gelfoam. A Doppler was used and revealed multiphasic flow proximally and distal to the anastomosis. At that point, the wound was copiously irrigated with antibiotic solution. The fascia was reapproximated with interrupted sutures of 3-0 Vicryl. The subcuticular tissue was reapproximated with 3-0 Vicryl. The skin was reapproximated with running sutures of 4-0 Monocryl. Dressing was placed. The patient was awakened from surgery, extubated and transferred to PACU in stable condition and tolerated the procedure well.
[2023-01-29] MEDS ORDERED: MORPHINE SULFATE 2 MG/ML SYRINGE IVP PRN (11:10)
[2023-01-29] MEDS ORDERED: ONDANSETRON 4 MG/2 ML VIAL IVP PRN (11:11)
[2023-01-29] MEDS ORDERED: HYDROmorphone 0.5 MG/0.5 ML SYRINGE IVP ONE (12:01)
[2023-01-29] MEDS ORDERED: ACETAMINOPHEN TAB 325 MG TAB PO PRN (16:17)
[2023-01-29] MEDS: LACTATED RINGERS 1,000 ML IV SCH ×3 (17:49→23:51)
[2023-01-29] MEDS ORDERED: DULoxetine HCL 30 MG CAPSULE.DR PO SCH (21:00)
[2023-01-30] MEDS: HYDROcodone/APAP 5-325MG 1 EACH TAB PO PRN ×2 (00:16→13:26)
[2023-01-30 07:59] VITALS: RESP 16
[2023-01-30 08:00] LABS: Basophils % (A) 0 %; Eosinophils # (A) 0.1 k/uL (0-0.7); Eosinophils % (A) 1 %; HCT 33.5 % (39.0-53.0); Lymphocytes # (A) 1.6 k/uL (1.0-4.8); Lymphocytes % (A) 12 %; MCH 32.2 pg (25.0-35.0); MCHC 32.8 g/dL (31.0-37.0); MCV 98.1 fL (80.0-100.0); Mean Platelet Volume 9.3; Monocytes # (A) 1.3 k/uL (0-1.0); Monocytes % (A) 10 %; Neutrophils # (A) 9.8 k/uL (1.3-7.7); Neutrophils % (A) 75 %; Platelet Count 308 k/uL (150-450); RBC 3.42 m/uL (4.30-5.90); WBC 13.1 k/uL (3.8-10.6)
[2023-01-30] MEDS: LACTATED RINGERS 1,000 ML IV SCH ×2 (08:00→17:03)
[2023-01-30 08:18] LABS: African American GFR (CKD) 41 (>60 ml/min/1.73 sqM); Anion Gap 8 mmol/L; Blood Urea Nitrogen 32 mg/dL (9-20); Calcium 8.8 mg/dL (8.4-10.2); Carbon Dioxide 21 mmol/L (22-30); Chloride 108 mmol/L (98-107); Glucose 102 mg/dL (74-99); Non-African American GFR(CKD) 36 (>60 ml/min/1.73 sqM); Sodium 137 mmol/L (137-145)
[2023-01-30] MEDS ORDERED: TRIAMTERENE-HCTZ 37.5-25MG 1 EACH TAB PO SCH (09:00)
[2023-01-30] MEDS ORDERED: lisinopriL 5 MG TAB PO SCH (09:00)
[2023-01-30] MEDS ORDERED: FAMOTIDINE 20 MG TAB PO SCH (09:45)
[2023-01-30] MEDS ORDERED: ATORVASTATIN 20 MG TAB PO SCH (09:45)
[2023-01-30] MEDS ORDERED: SODIUM ZIRCONIUM CYCLOSILICATE 10 GM PACKET PO SCH (09:45)
--- NOTE | 2023-01-30 10:09 | P.CONS ---
History of Present Illness - Reason for Consult Consult date: 01/30/23 wound care - History of Present Illness This is a 78-year-old gentleman known to the wound care center with past medical history significant for peripheral arterial disease with ulceration to the medial right great toe, lateral dorsal foot and the lateral calcaneus. Patient also has blistering noted to the second and fourth digit dorsal aspect of the left foot. Patient has been utilizing honey previously however due to pain many of the wounds were left undressed. Patient underwent a left endarterectomy. He is seen today states that he is pain-free. He has approved been a wound VAC in place. Original cause of wound was Trauma. The date acquired was: 07/19/2022. The wound has been in treatment 14 weeks. The wound is currently classified as a Unclassifiable wound with etiology of Arterial Insufficiency Ulcer and is located on the Left Toe Great. The wound measures 1.1cm length x 0.7cm width x 0.1cm depth; 0.605cm^2 area and 0.06cm^3 volume. There is no tunneling or undermining noted. There is a none present amount of drainage noted. The wound margin is flat and intact. There is no granulation within the wound bed. There is a large (67-100%) amount of necrotic tissue within the wound bed including Eschar. The periwound skin appearance exhibited: Callus, Dry/Scaly, Erythema. The periwound skin appearance did not exhibit: Crepitus, Excoriation, Induration, Rash, Scarring, Maceration, Atrophie Joss[place], Cyanosis, Ecchymosis, Hemosiderin Staining, Mottled, Pallor, Rubor. The surrounding wound skin color is noted with erythema which is circumferential. Periwound temperature was noted as No Abnormality. The periwound has tenderness on palpation. Original cause of wound was Not Known. The date acquired was: 11/20/2022. The wound has been in treatment 9 weeks. The wound is currently classified as a Full Thickness Without Exposed Support Structures wound with etiology of Arterial Insufficiency Ulcer a nd is located on the Left,Lateral Foot. The wound measures 0.9cm length x 0.9cm width x 0.1cm depth; 0.636cm^2 area and 0.064cm^3 volume. There is Fat Layer (Subcutaneous Tissue) exposed. There is no tunneling or undermining noted. There is a small amount of serous drainage noted. The wound margin is flat and intact. There is no granulation within the wound bed. There is a large (67-100%) amount of necrotic tissue within the wound bed including Adherent Slough. The periwound skin appearance exhibited: Dry/Scaly, Erythema. The periwound skin appearance did not exhibit: Callus, Crepitus, Excoriation, Induration, Rash, Scarring, Maceration, Atrophie [place], Cyanosis, Ecchymosis, Hemosiderin Staining, Mottled, Pallor. The surrounding wound skin color is noted with erythema. Periwound temperature was noted as No Abnormality. The periwound has tenderness on palpation. Original cause of wound was Trauma. The date acquired was: 01/15/2023. The wound has been in treatment 1 weeks. The wound is currently classified as a Full Thickness Without Exposed Support Structures wound with etiologies of Arterial Insufficiency Ulcer and Trauma, Other and is located on the Left,Dorsal Toe Fourth. The wound measures 0.5cm length x 0.6cm width x 0.1cm depth; 0.236cm^2 area and 0.024cm^3 volume. There is no tunneling or undermining noted. There is a medium amount of sanguinous drainage noted. The wound margin is flat and intact. There is large (67-100%) red granulation within the wound bed. There is a small (1-33%) amount of necrotic tissue within the wound bed. The periwound skin appearance exhibited: Erythema. The periwound skin appearance did not exhibit: Callus, Crepitus, Excoriation, Induration, Rash, Scarring, Cyanosis, Ecchymosis, Hemosiderin Staining, Mottled, Pallor, Rubor. The surrounding wound skin color is noted with erythema which is circumferential. Periwound temperature was noted as No Abnormality. The periwound has tenderness on palpation. Original cause of wound was Blister. The date acquired was: 01/22/2023. The wound is currently classified as a Partial Thickness wound with etiology of To be determined and is located on the Left,Lateral Foot. The wound measures 5.6cm length x 3.8cm width x 0.1cm depth; 16.713cm^2 area and 1.671cm^3 volume. The wound is limited to skin breakdown. There is no tunneling or undermining noted. There is a medium amount of serous drainage noted. The wound margin is flat and intact. There is large (67-100%) pink granulation within the wound bed. There is a small (1-33%) amount of necrotic tissue within the wound bed including Adherent Slough. The periwound skin appearance had no abnormalities noted for texture. The periwound skin appearance had no abnormalities noted for color. The periwound skin appearance exhibited: Maceration. The periwound skin appearance did not exhibit: Dry/Scaly. The periwound has tenderness on palpation. Review Of Systems: Constitutional: No fever, no chills, no night sweats. No weight change. No wea kness, fatigue or lethargy. No daytime sleepiness. Integumentary:reports wounds, no lesions. No rash or pruritus. No unusual bruising. No change in hair or nails. Physical exam: General Appearance: Alert, cooperative, no distress, appears stated age. Skin: See HPI all other Skin color, texture, tugor normal, no rashes or lesions. Neurologic: Alert oriented x3 Assessment: 1. 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 Arthrosclerosis of [place] arteries of left leg with ulceration of left heel Plan: 1. Apply honey gel, dry gauze, rolled gauze and secure with paper tape. Change Saturday. Patient will return to the wound care center on February 12 at 2:00 Thank you for the consultation any questions with contact the wound care center DNP note has been reviewed and discussed with Dr. Cheng and the impression and plan of care has been directed as dictated. Past Medical History Past Medical History: Cancer, CVA/TIA, GERD/Reflux, Hyperlipidemia, Hypertension, Prostate Disorder, Renal Disease Additional Past Medical History / Comment(s): umbilical hernia, b cell lymphoma, rt hand weak rt side is weaker as far as mobility, low grade kidney disease, History of Any Multi-Drug Resistant Organisms: None Reported Past Surgical History: Hernia Repair Additional Past Surgical History / Comment(s): Aortagram with runoff, umbilical hernia repair, colonoscopy Past Anesthesia/Blood Transfusion Reactions: No Reported Reaction Additional Past Anesthesia/Blood Transfusion Reaction / Comm: blood transfusions with lymphoma shu well Past Psychological History: No Psychological Hx Reported Additional Psychological History / Comment(s): Pt resides with spouse. Pt uses cane or walker. Smoking Status: Never smoker Past Alcohol Use History: Rare Past Drug Use History: Unable to Obtain Additional Drug Use History / Comment(s): Occasionally smokes marijuana. - Past Family History Father Family Medical History: Coronary Artery Disease (CAD), Myocardial Infarction ([place]) Additional Family Medical History / Comment(s): "HARDENING OF THE ARTERIES", AT AGE 60 Mother Additional Family Medical History / Comment(s): HX DIVERTICULITIS -WENT IN FOR SX - FROM POST OP COMPLICATIONS/SEPSIS. Brother(s) Family Medical History: Cancer Sister(s) Family Medical History: Cancer Additional Family Medical History / Comment(s): breast cancer Medications and Allergies Home Medications Medication Instructions Recorded Confirmed Type Simvastatin 40 mg PO QAM 04/24/17 01/21/23 History Clopidogrel [Plavix] 75 mg PO QAM 11/12/22 01/21/23 History DULoxetine HCL [Cymbalta] 30 mg PO HS 11/12/22 01/21/23 History Aspirin [Adult Low Dose Aspirin EC] 81 mg PO QAM 11/16/22 01/21/23 History Triamterene-Hctz 37.5-25Mg 1 tab PO QAM 12/20/22 01/21/23 History [Maxzide 37.5-25] lisinopriL [Zestril] 5 mg PO HS PRN 12/20/22 01/21/23 History lisinopriL [Zestril] 5 mg PO QAM 12/20/22 01/21/23 History Acetaminophen Tab [Tylenol] 325 mg PO Q6HR PRN 01/21/23 01/21/23 History Sodium Zirconium Cyclosilicate 5 gm PO DAILY 01/24/23 01/24/23 History [Lokelma] Allergies Allergy/AdvReac Type Severity Reaction Status Date / Time No Known Allergies Allergy Verified 01/29/23 07:40 Physical Exam Vitals: Vital Signs Temp Pulse Resp BP BP Pulse Ox 01/30/23 07:58 99.0 F 84 16 107/63 96 01/30/23 07:50 84 01/30/23 04:00 97.9 F 67 19 137/77 96 01/30/23 00:00 98.0 F 78 18 125/72 97 01/29/23 20:00 97.9 F 99 19 143/73 96 01/29/23 18:11 64 16 01/29/23 17:01 98.0 F 64 16 133/75 97 01/29/23 14:25 64 16 148/72 99 01/29/23 14:10 53 L 16 146/74 100 01/29/23 13:55 63 16 136/71 91 L 01/29/23 13:30 97.9 F 58 L 16 150/74 97 01/29/23 13:10 72 16 140/62 100 01/29/23 12:45 64 16 177/60 142/64 99 01/29/23 12:00 72 14 164/59 151/66 99 01/29/23 11:45 55 L 15 168/45 146/66 99 01/29/23 11:30 71 15 167/52 152/68 100 01/29/23 11:15 97.5 F L 76 12 161/59 145/65 100 Intake and Output 01/29/23 01/30/23 01/30/23 22:59 06:59 14:59 Intake Total 180 658 Output Total 600 325 Balance -420 -325 658 Intake: Oral 180 658 Output: Urine 600 325 Other: Voiding Method Indwelling Catheter Indwelling Catheter Indwelling Catheter Results CBC & Chem 7: 01/30/23 07:17 01/30/23 07:17 Labs: Abnormal Lab Results - Last 24 Hours (Table) 01/30/23 01/30/23 Range/Units 07:17 07:17 WBC 13.1 H (3.8-10.6) k/uL RBC 3.42 L (4.30-5.90) m/uL Hgb 11.0 L (13.0-17.5) gm/dL Hct 33.5 L (39.0-53.0) % Neutrophils # 9.8 H (1.3-7.7) k/uL Monocytes # 1.3 H (0-1.0) k/uL Chloride 108 H (98-107) mmol/L Carbon Dioxide 21 L (22-30) mmol/L BUN 32 H (9-20) mg/dL Creatinine 1.80 H (0.66-1.25) mg/dL Glucose 102 H (74-99) mg/dL Assessment and Plan (1) Atherosclerosis of left lower extremity with ulceration of heel Current Visit: Yes Status: Acute Code(s): I70.244 - ATHSCL [place] ART OF LEFT LEG W ULCER OF HEEL AND MIDFOOT SNOMED Code(s): 13798788 (2) 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
--- NOTE | 2023-01-30 12:34 | P.DS ---
Providers Date of admission: 01/29/2023 Expected date of discharge: 01/30/23 Attending physician: Dianna Sutton DO Consults: 01/29/23 11:09 Consult Physician Routine Consulting Provider: Srinivasa Tao Reason/Comments: MEDICAL MANAGEMENT. POST ENDART Do you want consulting provider notified?: Yes Primary care physician: [facility] Course: 78-year-old male with severe peripheral arterial disease with 4-5 cm segment of occlusion at the femoral popliteal level of his left leg. Chronic wounds and chronic pain patient elected to proceed with intervention. He is postop day #1 for left femoral popliteal endarterectomy with patch angioplasty. Patient states pain significantly improved to left lower extremity. He denies any shortness of breath, chest pain, abdominal pain, nausea or vomiting. Sutton catheter discontinued, patient yet to void. If patient unable to void in the next 4 hours bladder scan to be performed and has urinary retention Sutton cath eter to be placed. Physical therapy consulted. Wound care consulted as patient is known to them and will continue local wound care per their recommendations. Vital signs have been stable, patient has been afebrile. Exam General appearance: The patient is alert, oriented, appears in no acute distress. HET: Head is normocephalic and atraumatic. Pupils are equal and reactive. Neck: Supple. Heart: Regular. Lungs: Equal expansion, normal respiratory effort. Abdomen: Soft, nontender, nondistended. Extremities: Left lower extremity Prevena dressing intact with good suction over incision. Left lower extremity pitting edema. Sensorimotor intact. PT and DP Doppler signal present. Neurological: No focal deficits. Strength and sensation are grossly intact. Assessment 1. Left femoral popliteal artery occlusive disease, Theodore 5 peripheral arterial disease with chronic wounds Plan 1. Physical therapy consulted 2. Wound care center consulted, continue local wound care per their r ecommendations 3. Sutton catheter discontinued 4. Continue current medication 5. Postop shoe to left foot 6. Patient is cleared for discharge if he is able to void. If patient unable to void by 4 hours bladder scan and may place indwelling Sutton catheter and discharge home with follow-up to urology The impression and plan of care has been dictated as directed. Dr. Sutton I performed a history and examination of this patient, discussed the same with the dictator. I agree with the dictator's note ,documented as a scribe. Any additional findings or plans will be noted. Procedures: Procedure: Left femoral popliteal endarterectomy with patch angioplasty Patient Condition at Discharge: Stable Plan - Discharge Summary Discharge Rx Participant: No New Discharge Prescriptions: No Action Simvastatin 40 mg PO QAM DULoxetine HCL [Cymbalta] 30 mg PO HS Clopidogrel [Plavix] 75 mg PO QAM Aspirin [Adult Low Dose Aspirin EC] 81 mg PO QAM lisinopriL [Zestril] 5 mg PO QAM Triamterene-Hctz 37.5-25Mg [Maxzide 37.5-25] 1 tab PO QAM lisinopriL [Zestril] 5 mg PO HS PRN PRN Reason: Blood Pressure - High Acetaminophen Tab [Tylenol] 325 mg PO Q6HR PRN PRN Reason: Pain Sodium Zirconium Cyclosilicate [Lokelma] 5 gm PO DAILY Discharge Medication List Simvastatin 40 mg PO QAM 04/24/17 [History] Clopidogrel [Plavix] 75 mg PO QAM 11/12/22 [History] DULoxetine HCL [Cymbalta] 30 mg PO HS 11/12/22 [History] Aspirin [Adult Low Dose Aspirin EC] 81 mg PO QAM 11/16/22 [History] Triamterene-Hctz 37.5-25Mg [Maxzide 37.5-25] 1 tab PO QAM 12/20/22 [History] lisinopriL [Zestril] 5 mg PO HS PRN 12/20/22 [History] lisinopriL [Zestril] 5 mg PO QAM 12/20/22 [History] Acetaminophen Tab [Tylenol] 325 mg PO Q6HR PRN 01/21/23 [History] Sodium Zirconium Cyclosilicate [Lokelma] 5 gm PO DAILY 01/24/23 [History]
--- NOTE | 2023-01-30 13:28 | P.CONS ---
History of Present Illness - Reason for Consult Consult date: 01/30/23 Medical management Requesting physician: Dianna Sutton - History of Present Illness This is a 78-year-old male with medical history of B-cell lymphoma, stroke, asthma, hyperlipidemia, hypertension, chronic kidney disease, prostate disorder. Patient is postoperative day #1 left femoral-popliteal endartectomy with a patch angioplasty secondary to peripheral arterial disease with chronic wounds. Medical consultation and management is requested, currently patient is an resumed on his home medication including lisinopril daily which was continued at this time recommend holding the triamterene Hctz combination secondary to low blood pressures. Patient does have parameters on lisinopril to hold if SBP less than 130s patient has been running in the 110s systolic and does state he has dropped into the high 90s systolic at home. Baseline creatinine appears to be 1.4 to 1.6, currently 1.8. Family is questioning if they should follow up with a mobile mechanic and will discuss with PCP on follow up. REVIEW OF SYSTEMS: CONSTITUTIONAL: No fever, no malaise, no fatigue. HEENT: No recent visual problems or hearing problems. Denied any sore throat. CARDIOVASCULAR: No chest pain, orthopnea, PND, no palpitations, no syncope. PULMONARY: No shortness of breath, no cough, no hemoptysis. GASTROINTESTINAL: No diarrhea, no nausea, no vomiting, no abdominal pain. NEUROLOGICAL: No headaches, no weakness, no numbness. HEMATOLOGICAL: Denies any bleeding or petechiae. GENITOURINARY: Denies any burning micturition, frequency, or urgency. MUSCULOSKELETAL/RHEUMATOLOGICAL: Denies any joint pain, swelling, or any muscle pain. ENDOCRINE: Denies any polyuria or polydipsia. The rest of the 14-point review of systems is negative. PHYSICAL EXAMINATION: GENERAL: The patient is alert and oriented x3, not in any acute distress. Well developed, well nourished. HEENT: Pupils are round and equally reacting to light. EOMI. No scleral icterus. No conjunctival pallor. Normocephalic, atraumatic. No pharyngeal erythema. No thyromegaly. CARDIOVASCULAR: S1 and S2 present. No murmurs, rubs, or gallops. PULMONARY: Chest is clear to auscultation, no wheezing or crackles. ABDOMEN: Soft, nontender, nondistended, normoactive bowel sounds. No palpable organomegaly. MUSCULOSKELETAL: No joint swelling or deformity. EXTREMITIES: No cyanosis, clubbing, or pedal edema. Prevana pump in place to left leg. Dressing intact to left foot. NEUROLOGICAL: Gross neurological examination did not reveal any focal deficits. SKIN: No rashes. Assessment and Plan Peripheral arterial disease status post left femoral popliteal endarectomy and angioplasty - [place] 5 PAD with chronic wounds. 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 Continue with postop shoe to the left foot as recommending by vascular services Prevana pump to stay in place for 7 days and after may remove and throw away on 02/05/23 per vascular recommendations Continue local wound care as recommended with honey gel dry gauze and paper taper MWF and f/u at wound center February 12 Cleared medically for DC and follow up with Dr. Tao in the office. The impression and plan of care has been dictated by Clara Zepeda Nurse Practitioner as directed. Dr. Hafsa MD I have performed a history and physical examination and medical decision making of this patient, discussed the same with the dictator, and agree with the dictators assessment and plan as written, documented as a scribe. Based on total visit time, I have performed more than 50% of this visit. Past Medical History Past Medical History: Cancer, CVA/TIA, GERD/Reflux, Hyperlipidemia, Hypertension, Prostate Disorder, Renal Disease Additional Past Medical History / Comment(s): umbilical hernia, b cell lymphoma, rt hand weak rt side is weaker as far as mobility, low grade kidney disease, History of Any Multi-Drug Resistant Organisms: None Reported Past Surgical History: Hernia Repair Additional Past Surgical History / Comment(s): Aortagram with runoff, umbilical hernia repair, colonoscopy Past Anesthesia/Blood Transfusion Reactions: No Reported Reaction Additional Past Anesthesia/Blood Transfusion Reaction / Comm: blood transfusions with lymphoma shu well Past Psychological History: No Psychological Hx Reported Additional Psychological History / Comment(s): Pt resides with spouse. Pt uses cane or walker. Smoking Status: Never smoker Past Alcohol Use History: Rare Past Drug Use History: Unable to Obtain Additional Drug Use History / Comment(s): Occasionally smokes marijuana. - Past Family History Father Family Medical History: Coronary Artery Disease (CAD), Myocardial Infarction (MO) Additional Family Medical History / Comment(s): "HARDENING OF THE ARTERIES", AT AGE 60 Mother Additional Family Medical History / Comment(s): HX DIVERTICULITIS -WENT IN FOR SX - FROM POST OP COMPLICATIONS/SEPSIS. Brother(s) Family Medical History: Cancer Sister(s) Family Medical History: Cancer Additional Family Medical History / Comment(s): breast cancer Medications and Allergies Home Medications Medication Instructions Recorded Confirmed Type Simvastatin 40 mg PO QAM 04/24/17 01/21/23 History Clopidogrel [Plavix] 75 mg PO QAM 11/12/22 01/21/23 History DULoxetine HCL [Cymbalta] 30 mg PO HS 11/12/22 01/21/23 History Aspirin [Adult Low Dose Aspirin EC] 81 mg PO QAM 11/16/22 01/21/23 History Triamterene-Hctz 37.5-25Mg 1 tab PO QAM 12/20/22 01/21/23 History [Maxzide 37.5-25] lisinopriL [Zestril] 5 mg PO HS PRN 12/20/22 01/21/23 History lisinopriL [Zestril] 5 mg PO QAM 12/20/22 01/21/23 History Acetaminophen Tab [Tylenol] 325 mg PO Q6HR PRN 01/21/23 01/21/23 History Sodium Zirconium Cyclosilicate 5 gm PO DAILY 01/24/23 01/24/23 History [Lokelma] HYDROcodone/APAP 5-325MG [Holdrege 1 each PO Q4HR PRN 3 Days #18 tab 01/30/23 Rx 5-325] Allergies Allergy/AdvReac Type Severity Reaction Status Date / Time No Known Allergies Allergy Verified 01/29/23 07:40 Physical Exam Vitals: Vital Signs Temp Pulse Resp BP BP Pulse Ox 01/30/23 07:58 99.0 F 84 16 107/63 96 01/30/23 07:50 84 01/30/23 04:00 97.9 F 67 19 137/77 96 01/30/23 00:00 98.0 F 78 18 125/72 97 01/29/23 20:00 97.9 F 99 19 143/73 96 01/29/23 18:11 64 16 01/29/23 17:01 98.0 F 64 16 133/75 97 01/29/23 14:25 64 16 148/72 99 01/29/23 14:10 53 L 16 146/74 100 01/29/23 13:55 63 16 136/71 91 L 01/29/23 13:30 97.9 F 58 L 16 150/74 97 01/29/23 13:10 72 16 140/62 100 01/29/23 12:45 64 16 177/60 142/64 99 01/29/23 12:00 72 14 164/59 151/66 99 01/29/23 11:45 55 L 15 168/45 146/66 99 01/29/23 11:30 71 15 167/52 152/68 100 01/29/23 11:15 97.5 F L 76 12 161/59 145/65 100 Intake and Output 01/29/23 01/30/23 01/30/23 22:59 06:59 14:59 Intake Total 180 658 Output Total 600 325 Balance -420 -325 658 Intake: Oral 180 658 Output: Urine 600 325 Other: Voiding Method Indwelling Catheter Indwelling Catheter Indwelling Catheter Results CBC & Chem 7: 01/30/23 07:17 01/30/23 07:17 Labs: Abnormal Lab Results - Last 24 Hours (Table) 01/30/23 01/30/23 Range/Units 07:17 07:17 WBC 13.1 H (3.8-10.6) k/uL RBC 3.42 L (4.30-5.90) m/uL Hgb 11.0 L (13.0-17.5) gm/dL Hct 33.5 L (39.0-53.0) % Neutrophils # 9.8 H (1.3-7.7) k/uL Monocytes # 1.3 H (0-1.0) k/uL Chloride 108 H (98-107) mmol/L Carbon Dioxide 21 L (22-30) mmol/L BUN 32 H (9-20) mg/dL Creatinine 1.80 H (0.66-1.25) mg/dL Glucose 102 H (74-99) mg/dL Assessment and Plan Time with Patient: Less than 30
[2023-01-30 15:35] VITALS: BP 122/69; PULSE 68; TEMP 98.7
== END 2023-01-30 17:56 | disposition home health service (06) ==
LOC: OR 07:16 → 3SCARD 11:06 → OR 01-30 17:56
PROVIDERS: ATTEND Surgery
DX: I70.212 Atherosclerosis of native arteries of extremities with intermittent claudication, left leg (principal); I12.9 Hypertensive chronic kidney disease with stage 1 through stage 4 chronic kidney disease, or unspecified chronic kidney disease; N18.9 Chronic kidney disease, unspecified; E78.5 Hyperlipidemia, unspecified; N40.0 Benign prostatic hyperplasia without lower urinary tract symptoms; J45.909 Unspecified asthma, uncomplicated; F41.9 Anxiety disorder, unspecified; K21.9 Gastro-esophageal reflux disease without esophagitis; M19.90 Unspecified osteoarthritis, unspecified site; Z86.73 Personal history of transient ischemic attack (TIA), and cerebral infarction without residual deficits; Z79.02 Long term (current) use of antithrombotics/antiplatelets; Z85.72 Personal history of non-Hodgkin lymphomas; F12.90 Cannabis use, unspecified, uncomplicated; Z79.899 Other long term (current) drug therapy; Z79.52 Long term (current) use of systemic steroids
CPT/HCPCS: 35372; 97162; 86900; 86901; 80048; 85025; 86850; C1781; J2250; J0330; J1644 ×2; J1100; J2710; J0690 ×2; J2405; J3010; J2270; J2370; J2704; J1170; J2001

== ENCOUNTER → 2023-04-17 | Outpatient (CLI) | payer MEDICARE ==
[2023-04-17 21:43] LABS: Albumin 3.7 d/dL (3.8-4.9); BUN/Creat Ratio 15.57 Ratio (12.00-20.00); Blood Urea Nitrogen 21.8 mg/dL (9.0-27.0); Calcium 8.9 mg/dL (8.7-10.3); Carbon Dioxide 22.2 mmol/L (21.6-31.8); Chloride 106 mmol/L (96-109); Glucose 128 mg/dL (70-110); Phosphorus 2.7 mg/dL (2.4-5.1); Potassium 4.8 mmol/L (3.5-5.5); Sodium 139 mmol/L (135-145)
== END | disposition home or self-care (01) ==
LOC: LABWHC1 13:55
PROVIDERS: ATTEND Surgery Vascular Surgery
DX: I70.262 Atherosclerosis of native arteries of extremities with gangrene, left leg (principal)
CPT/HCPCS: 36415; 80069

== ENCOUNTER → 2024-06-24 | Outpatient (CLI) | payer MEDICARE ==
[2024-06-24 18:33] LABS: Albumin 3.6 g/dL (3.8-4.9); BUN/Creat Ratio 14.19 Ratio (12.00-20.00); Blood Urea Nitrogen 22.7 mg/dL (9.0-27.0); Calcium 8.9 mg/dL (8.7-10.3); Carbon Dioxide 19.2 mmol/L (21.6-31.8); Chloride 110 mmol/L (96-109); Glucose 114 mg/dL (70-110); Phosphorus 2.9 mg/dL (2.4-5.1); Potassium 4.9 mmol/L (3.5-5.5); Sodium 142 mmol/L (135-145)
== END | disposition home or self-care (01) ==
LOC: LABWHC1 13:01
PROVIDERS: ATTEND Surgery Vascular Surgery
DX: I70.235 Atherosclerosis of native arteries of right leg with ulceration of other part of foot (principal)
CPT/HCPCS: 36415; 80069

== ENCOUNTER → 2024-08-06 | Outpatient (CLI) | payer MEDICARE ==
--- NOTE | 2024-08-06 14:26 | US ---
EXAMINATION TYPE: US arterial LE single level DATE OF EXAM: 08/06/2024 2:09 PM COMPARISONS: Ultrasound arterial lower extremity 2022 CLINICAL INDICATION: Male, 79 years old with history of I70.235 A[address] [place] ARTERIES OF RIGHT LEG; TECHNIQUE: Systolic pressures were taken of the upper and lower extremity arteries with ankle-brachia l indices and toe brachial indices calculated bilaterally. History of: Smoker: No Hypertension: Yes Diabetic: No Hyperlipidemia: No TIA/CVA: Yes Previous Vascular Surgery: Yes - 07/02/24 right angio arteriectomy CAD: NO [place]: No Vascular Ulcers: NO Claudication: No Gangrene: No FINDINGS: Brachial Artery systolic pressure: Right: 206 Left: CNO Posterior Tibial artery systolic pressure: Right: CNO Left: Amputation Dorsalis Pedis artery systolic pressure: Right: CNO Left: Amputation Ankle-Brachial Indices: Right: Unable to obtain. Left: Amputation IMPRESSION: GUDELIA: Right: Nondiagnostic with unable to obtain right posterior tibial and dorsalis pedis pressures. Left: Amputation [facility], , 08/06/2024 2:23 PM
== END | disposition home or self-care (01) ==
LOC: RADUSWWP 13:33
PROVIDERS: ATTEND Surgery Vascular Surgery
DX: I70.235 Atherosclerosis of native arteries of right leg with ulceration of other part of foot (principal); I10 Essential (primary) hypertension; Z86.73 Personal history of transient ischemic attack (TIA), and cerebral infarction without residual deficits
CPT/HCPCS: 93922

== ENCOUNTER → 2024-11-06 | Outpatient (CLI) | payer MEDICARE ==
[2024-11-06 18:12] LABS: Basophils % (A) 0.8 %; Eosinophils # (A) 0.67 X 10*3/uL (0.04-0.35); Eosinophils % (A) 5.2 %; HCT 42.7 % (39.6-50.0); HGB 13.1 g/dL (13.0-17.0); Lymphocytes # (A) 1.73 X 10*3/uL (0.90-5.00); Lymphocytes % (A) 13.4 %; MCH 30.3 pg (27.0-32.0); MCHC 30.7 g/dL (32.0-37.0); MCV 98.8 FL (80.0-97.0); Mean Platelet Volume 11.7 FL (9.5-12.2); Monocytes # (A) 1.07 X 10*3/uL (0.20-1.00); Monocytes % (A) 8.3 %; NRBC Per 100 WBC 0 X 10*3/uL (0.00-0.01); Neutrophils # (A) 9.21 X 10*3/uL (1.80-7.70); Neutrophils % (A) 71.5 %; Platelet Count 326 X 10*3/uL (140-440); RBC 4.32 X 10*6/uL (4.40-5.60); RDW 15.5 % (11.5-14.5); WBC 12.88 X 10*3/uL (4.50-10.00)
[2024-11-06 18:31] LABS: ALT 13 U/L (10-49); AST 17 U/L (14-35); Albumin 3.9 g/dL (3.8-4.9); Albumin/Globulin Ratio 1.62 Ratio (1.60-3.17); Alkaline Phosphatase 93 U/L (41-126); BUN/Creat Ratio 15.67 Ratio (12.00-20.00); Blood Urea Nitrogen 28.2 mg/dL (9.0-27.0); Calcium 9.1 mg/dL (8.7-10.3); Carbon Dioxide 19.1 mmol/L (21.6-31.8); Chloride 112 mmol/L (96-109); Globulin 2.4 g/dL (1.6-3.3); Glucose 116 mg/dL (70-110); Potassium 5.2 mmol/L (3.5-5.5); Sodium 144 mmol/L (135-145); Total Bilirubin 0.2 mg/dL (0.3-1.2); Total Protein 6.3 g/dL (6.2-8.2)
[2024-11-06 18:32] LABS: Prostate Specific Antigen 4.12 ng/mL (0.000-6.500)
== END | disposition home or self-care (01) ==
LOC: LABWHC1 13:40
PROVIDERS: ATTEND Physician Assistant
DX: E78.2 Mixed hyperlipidemia (principal); E11.22 Type 2 diabetes mellitus with diabetic chronic kidney disease; N40.1 Benign prostatic hyperplasia with lower urinary tract symptoms; R94.6 Abnormal results of thyroid function studies
CPT/HCPCS: 36415; 80053; 83036; 84153; 84443; 85025

== ENCOUNTER → 2024-11-07 | Outpatient (CLI) | payer MEDICARE ==
[2024-11-08 09:41] LABS: LDL Cholesterol,Calculated 102.3 mg/dL (0.0-131.0)
== END | disposition home or self-care (01) ==
LOC: LABWHC1 10:58
PROVIDERS: ATTEND Internal Medicine Geriatric Medicine
DX: E11.22 Type 2 diabetes mellitus with diabetic chronic kidney disease (principal); E78.2 Mixed hyperlipidemia; N40.1 Benign prostatic hyperplasia with lower urinary tract symptoms; N18.9 Chronic kidney disease, unspecified; R94.6 Abnormal results of thyroid function studies
CPT/HCPCS: 36415; 80061; 82043; 82570

== ENCOUNTER → 2024-11-25 | Outpatient (CLI) | payer MEDICARE ==
[2024-11-25 18:25] LABS: BUN/Creat Ratio 18.18 Ratio (12.00-20.00); Blood Urea Nitrogen 30.9 mg/dL (9.0-27.0); Calcium 9.2 mg/dL (8.7-10.3); Carbon Dioxide 21.7 mmol/L (21.6-31.8); Chloride 106 mmol/L (96-109); Glucose 99 mg/dL (70-110); Phosphorus 3.2 mg/dL (2.4-5.1); Potassium 4.7 mmol/L (3.5-5.5); Sodium 141 mmol/L (135-145)
== END | disposition home or self-care (01) ==
LOC: LABWHC1 12:44
PROVIDERS: ATTEND Surgery Vascular Surgery
DX: I70.235 Atherosclerosis of native arteries of right leg with ulceration of other part of foot (principal)
CPT/HCPCS: 36415; 80069